=== PATIENT | male | born 1945 | race African-American/Black ===

== ENCOUNTER 2016-09-12 13:56 | Inpatient (IN) | payer OTHER, MEDICARE ==
[~2016-09-12] VITALS: Ht 162.6 cm; Wt 62.7 kg
[~2016-09-12 13:56] MED LIST: AMOX500T PO; BENZ100 PO; FLUT1SPR9 EACH NARE; OMEP20TA39 PO; PRED20 PO
[2016-09-17] VITALS (9 sets, daily range): BP systolic 113–184; BP diastolic 57–92; PULSE 80–109; RESP 16–21; TEMP 97.1–98.3; O2SAT 96–97
[2016-09-17] MEDS ORDERED: INSULIN HUMAN REGULAR 1,000 UNITS/10 ML VIAL SQ PRN (07:00)
[2016-09-17] MEDS ORDERED: METOPROLOL TARTRATE 25 MG TAB PO PRN (07:00)
[2016-09-17] MEDS ORDERED: SODIUM CHLORID 0.9% 500 ML IV SCH (07:00)
[2016-09-17] MEDS ORDERED: ASPI1TAB69 PO (07:21)
[2016-09-17] MEDS ORDERED: AMLO5TAB2 PO (07:21)
[2016-09-17] MEDS ORDERED: ATOR40TA16 PO (07:21)
[2016-09-17] MEDS ORDERED: OMEP40CA2 PO (07:21)
[2016-09-17] MEDS ORDERED: SERT-132 PO (07:21)
[2016-09-17] MEDS ORDERED: CILO100T PO (07:21)
[2016-09-17] MEDS ORDERED: LISI10TA3 PO (07:21)
--- NOTE | 2016-09-17 07:21 | PD.VS.PN ---
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 Chest clear this morning and heart RRR, no M. Informed consent has been obtained from Nico Lindsey. I have explained the procedure in detail and discussed the risks, benefits, and potential complications. All questions have been answered. Patient contact information: coming later today Yo Fisher MD Sep 17, 2016 07:21
--- NOTE | 2016-09-17 07:23 | RADRPT ---
EXAM DATE/TIME: 09/17/2016 07:03 [place] COMPARISON: No previous studies available for comparison. INDICATIONS : Evaluate for communicable diseases. Pre op vascular surgery. MEDICAL HISTORY : None. SURGICAL HISTORY : None. ENCOUNTER: Initial ACUITY: 1 day PAIN SCORE: 0/10 LOCATION: Bilateral chest FINDINGS: A single view of the chest demonstrates the lungs to be symmetrically aerated without evidence of mas s, infiltrate or effusion. The cardiomediastinal contours are unremarkable. Osseous structures are intact. CONCLUSION: No acute disease. August Ugalde MD on September 17, 2016 at 7:21 Board Certified Radiologist. This report was verified electronically.
--- NOTE | 2016-09-17 08:06 | EKG ---
Date Performed: 09/17/2016 Time Performed: 07:18:31 PTAGE: 71 years EKG: Sinus rhythm WITH FIRST DEGREE AV BLOCK NONSPECIFIC T-WAVE ABNORMALITY ABNORMAL ECG NO PREVIOUS TRACING DOCTOR: Brody Mao Interpretating Date/Time 09/17/2016 08:03:53
[2016-09-17] MEDS ORDERED: HEPARIN SODIUM - SQ 10,000 UNITS/ML VIAL ONE (08:36)
[2016-09-17] MEDS ORDERED: BUPIVACAINE/EPINEPHRINE 0.25% PF 30 ML VIAL ONE (08:36)
[2016-09-17] MEDS ORDERED: FAMOTIDINE 20 MG/2 ML VIAL ONE (08:45)
[2016-09-17] MEDS ORDERED: MIDAZOLAM HCL 2 MG/2 ML VIAL ONE (08:45)
[2016-09-17] MEDS ORDERED: DEXAMETHASONE SOD PHOS 4 MG/ML VIAL ONE (08:46)
[2016-09-17] MEDS ORDERED: ACETAMINOPHEN 1000 MG/100 ML VIAL IV ONE (08:53)
[2016-09-17] MEDS ORDERED: ceFAZolin INJ 1,000 MG VIAL IV ONE (09:37)
[2016-09-17] MEDS ORDERED: ceFAZolin INJ 1,000 MG VIAL ONE (09:58)
[2016-09-17] MEDS ORDERED: PROTAMINE SULFATE 50 MG/5 ML VIAL ONE (09:58)
[2016-09-17] MEDS ORDERED: HEPARIN SODIUM - IV 10,000 UNITS/10 ML VIAL ONE (09:58)
[2016-09-17] MEDS ORDERED: PROPOFOL 200 MG/20 ML AMP IV ONE (12:00)
[2016-09-17] MEDS ORDERED: NEOSTIGMINE 3 MG/3 ML SYR IV ONE (12:00)
[2016-09-17] MEDS ORDERED: SODIUM CHLORID 0.9% 500 ML BAG IV ONE (12:00)
[2016-09-17] MEDS ORDERED: ePHEDrine/NS 25 MG/5 ML SYR IV ONE (12:00)
[2016-09-17] MEDS ORDERED: PARENTERAL ELECTROLYTES PH 7.4 1000 ML BAG IV ONE (12:00)
[2016-09-17] MEDS ORDERED: PHENYLEPHRINE HCL 10 MG/ML VIAL IV ONE (12:00)
[2016-09-17] MEDS ORDERED: IOHEXOL 300 MG/ML 100 ML BTL (for Rad CT) IV ONE (12:00)
[2016-09-17] MEDS ORDERED: ONDANSETRON HCL 4 MG/2 ML VIAL IV PUSH ONE (12:00)
[2016-09-17] MEDS ORDERED: THROMBIN (TOPICAL) 5,000 UNIT VIAL ONE ×2 (12:23→12:26)
[2016-09-17] MEDS ORDERED: GELFOAM SIZE 100 ONE (12:23)
[2016-09-17] MEDS ORDERED: DO NOT ADM ANY ANTICOAGULANT DRUGS XX PRN (13:24)
--- NOTE | 2016-09-17 13:39 | HHI.PR ---
Immediate Post Op Note Procedure Date: Sep 17, 2016 Pre Op Diagnosis: L LE rest pain, PAD Post Op Diagnosis: L LE rest pain, PAD Surgeon: Yo Fisher Training And Development Professional(s): none Procedure: R to L fem-fem bypass with 8mm PTFE L fem-PT with 6mm PTFE re-do bypass Findings: very small tibial vessel Palpable L profunda after bypass Additional Information: none Complications: none apparent Specimen(s) removed: none Estimated blood loss: 450 mL Anesthesia: General Drains: None Fluids: 2600 mL X'oid IVF (500 mL UOP) Patient to: PACU Patient Condition: Good Implant/Devices: SEE IMPLANT LOG (if applicable) Date/Time of Procedure: SEE SURGICAL CARE RECORD Yo Fisher MD Sep 17, 2016 13:39
[2016-09-17] MEDS ORDERED: fentaNYL CITRATE 250 MCG/5 ML AMP ONE (13:43)
[2016-09-17] MEDS ORDERED: oxyCODONE/ACETAMINOPHEN 5 MG/325 MG TAB PO PRN (14:00)
[2016-09-17] MEDS ORDERED: Post-op Orders (for Pharmacy) MISC OTHER ONE (14:00)
[2016-09-17] MEDS ORDERED: MORPHINE SULFATE 4 MG/ML INJ IV PUSH PRN (14:00)
[2016-09-17] MEDS ORDERED: GLUCAGON 1 MG/ML VIAL OTHER PRN (14:00)
[2016-09-17] MEDS ORDERED: oxyCODONE/ACETAMINOPHEN 10 MG/325 MG TAB PO PRN (14:00)
[2016-09-17] MEDS ORDERED: DEXTROSE 50% IN WATER 50 ML VIAL(D50) IV PUSH PRN (14:00)
[2016-09-17] MEDS ORDERED: *morphine SULFATE 8 MG/ML PERIprocedure ONLY ONE (14:04)
[2016-09-17] MEDS ORDERED: METOPROLOL TARTRATE 5 MG/5 ML VIAL IV PUSH PRN (14:30)
[2016-09-17] MEDS ORDERED: amLODIPine BESYLATE 5 MG TAB PO ONE (15:30)
[2016-09-17] MEDS: SODIUM CHLOR 0.9% 1000 ML INJ 1,000 ML IV SCH ×2 (17:15→23:53)
[2016-09-17] MEDS: INSULIN NovoLIN REGULAR SUPPLEMENTAL SCALE SQ SCH (18:00)
[2016-09-17] MEDS: PANTOPRAZOLE SOD 40 MG DELAYED RELEASE TAB PO SCH (21:54)
[2016-09-17] MEDS: DOCUSATE CALCIUM 240 MG CAP PO SCH (21:54)
[2016-09-17] MEDS: ATORVASTATIN 40 MG TAB PO SCH (21:54)
[2016-09-18] VITALS (29 sets, daily range): BP systolic 100–113; BP diastolic 52–72; PULSE 90–142; RESP 18–22; TEMP 98–100.4; O2SAT 92–96
[2016-09-18] MEDS: INSULIN NovoLIN REGULAR SUPPLEMENTAL SCALE SQ SCH ×4 (06:00→17:56)
[2016-09-18] MEDS: LACTATED RINGER'S 1000 ML IV SCH (07:00)
[2016-09-18 07:03] LABS: BICARBONATE 25.3 MEQ/L (21.0-32.0); POTASSIUM 3.9 MEQ/L (3.5-5.1)
[2016-09-18] MEDS: ASPIRIN EC 81 MG TABEC PO SCH (09:00)
[2016-09-18] MEDS: SERTRALINE HCL 50 MG TAB PO SCH (09:13)
[2016-09-18] MEDS: LISINOPRIL 10 MG TAB PO SCH (09:13)
[2016-09-18] MEDS: SODIUM CHLOR 0.9% 1000 ML INJ 1,000 ML IV SCH (09:42)
--- NOTE | 2016-09-18 09:42 | PD.VS.PN ---
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 with a hx of L LE critical limb ischemia Today pt is on st resting comfortably with a c/o slight discomfort to surgical sites Objective Vitals/I&O Date Time Temp Pulse Resp B/P Pulse Ox O2 Delivery O2 Flow Rate FiO2 09/18/16 06:00 90 09/18/16 05:00 92 09/18/16 04:00 94 09/18/16 03:00 98.0 101 18 100/52 96 09/18/16 03:00 102 09/18/16 02:00 103 09/18/16 01:00 96 09/18/16 00:00 96 09/17/16 23:00 90 09/17/16 23:00 98.3 100 16 127/86 96 09/17/16 23:00 Nasal Cannula 2.00 09/17/16 22:00 103 09/17/16 21:00 97 09/17/16 20:00 91 09/17/16 19:00 97.1 104 21 113/57 96 09/17/16 19:00 90 09/17/16 18:05 92 09/17/16 17:02 89 09/17/16 17:01 97.9 109 16 121/79 97 09/17/16 15:30 97.5 94 12 123/77 97 Nasal Cannula 2 09/17/16 15:15 95 12 149/80 97 Nasal Cannula 2 09/17/16 15:00 97 12 117/70 96 Nasal Cannula 2 09/17/16 14:45 94 12 142/78 98 Nasal Cannula 2 09/17/16 14:30 92 12 141/77 98 Nasal Cannula 2 09/17/16 14:15 90 12 116/70 97 Nasal Cannula 2 09/17/16 14:00 87 15 137/77 97 Nasal Cannula 2 09/17/16 13:45 88 15 132/62 98 Blow By 4 Nasal Cannula 09/17/16 13:30 101 14 135/77 98 Blow By 4 Nasal Cannula 09/17/16 13:28 97.5 97 14 135/74 98 Blow By 4 Nasal Cannula Exam: GENERAL: Pt in bed smiling alert and oriented in nad SKIN: Warm and dry. NECK: Supple, trachea midline. No JVD or lymphadenopathy. CARDIOVASCULAR: Regular rate and rhythm RESPIRATORY: No accessory muscle use. GASTROINTESTINAL: Abdomen soft, non-tender, nondistended. Pt c/o slight discomfort to surgical sites, wound vacs intact MUSCULOSKELETAL: No cyanosis, or edema. Bilat LE warm with NO erythema or tenderness, motor intact and symmetric. Incisions: wound vacs intact Laboratory Laboratory Tests Test 09/18/16 05:36 Sodium Level 138 Potassium Level 3.9 Chloride Level 104 Carbon Dioxide Level 25.3 Anion Gap 9 Blood Urea Nitrogen 13 Creatinine 0.97 Estimat Glomerular Filtration 92 Rate Random Glucose 98 Calcium Level 7.9 Assessment and Plan Plan Remove Valdovinos cath today Stop IV fluids Start home medications PT OOB today Vero Kimble Sep 18, 2016 09:42
[2016-09-18] MEDS ORDERED: ASPIRIN EC 81 MG TABEC PO SCH (09:45)
[2016-09-18] MEDS: amLODIPine BESYLATE 5 MG TAB PO SCH (09:45)
[2016-09-18] MEDS: ENOXAPARIN SODIUM 40 MG/0.4 ML SYRINGE SQ SCH (12:00)
[2016-09-18] MEDS: DOCUSATE CALCIUM 240 MG CAP PO SCH ×2 (21:00→21:15)
[2016-09-18] MEDS: ATORVASTATIN 40 MG TAB PO SCH ×2 (21:00→21:15)
[2016-09-18] MEDS: PANTOPRAZOLE SOD 40 MG DELAYED RELEASE TAB PO SCH ×2 (21:00→21:15)
[2016-09-18] MEDS: ACETAMINOPHEN 325 MG TAB PO PRN (23:39)
[2016-09-19] VITALS (27 sets, daily range): BP systolic 91–140; BP diastolic 54–75; PULSE 98–133; RESP 14–25; TEMP 98.1–99.1; O2SAT 94–96
[2016-09-19] MEDS: INSULIN NovoLIN REGULAR SUPPLEMENTAL SCALE SQ SCH ×4 (06:00→18:00)
[2016-09-19] MEDS ORDERED: ONDANSETRON HCL 4 MG/2 ML VIAL ONE (06:38)
[2016-09-19] MEDS: LACTATED RINGER'S 1000 ML IV SCH (07:00)
[2016-09-19] MEDS: ACETAMINOPHEN 325 MG TAB PO PRN ×3 (08:09→23:30)
[2016-09-19] MEDS: CILOSTAZOL 100 MG TAB PO SCH (09:18)
[2016-09-19] MEDS: LISINOPRIL 10 MG TAB PO SCH (09:18)
[2016-09-19] MEDS: amLODIPine BESYLATE 5 MG TAB PO SCH (09:19)
[2016-09-19] MEDS: SERTRALINE HCL 50 MG TAB PO SCH (09:19)
[2016-09-19] MEDS: ASPIRIN EC 81 MG TABEC PO SCH (09:19)
[2016-09-19] MEDS: ENOXAPARIN SODIUM 40 MG/0.4 ML SYRINGE SQ SCH (12:00)
--- NOTE | 2016-09-19 14:43 | PD.VS.PN ---
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 patient with a hx of L LE critical limb ischemia Pt c/o left leg discomfort stated has improved since admission and fem/fem bypass (Vero Kimble) Objective Vitals/I&O Date Time Temp Pulse Resp B/P Pulse Ox O2 Delivery O2 Flow Rate FiO2 09/19/16 09:19 20 09/19/16 07:00 98.7 114 25 122/59 96 09/19/16 07:00 107 09/19/16 06:01 103 09/19/16 05:00 102 09/19/16 04:01 98 09/19/16 03:45 98.1 106 22 140/75 94 09/19/16 03:00 102 09/19/16 02:01 100 09/19/16 01:00 108 09/19/16 00:01 109 09/18/16 23:45 98.7 108 22 113/56 94 09/18/16 23:00 115 09/18/16 22:00 107 09/18/16 21:00 110 09/18/16 20:45 98.4 127 22 104/72 93 09/18/16 20:00 110 09/18/16 19:00 105 09/18/16 18:00 94 09/18/16 17:00 113 09/18/16 16:43 98.5 128 20 111/62 96 09/18/16 16:00 112 09/18/16 15:00 117 Physical Exam GENERAL: Pt laying in bed alert in nad, GCS 15 SKIN: Warm and dry. NECK: Supple, trachea midline. No JVD or lymphadenopathy. CARDIOVASCULAR: Regular rate and rhythm . RESPIRATORY: Breath sounds equal bilaterally. No accessory muscle use. GASTROINTESTINAL: Abdomen soft, non-tender, nondistended. 2 provena wound vacs located in groin regions intact MUSCULOSKELETAL: No cyanosis, or edema. RLE PT heard with triphasic signal via doppler, BLE warm with motor intact (Vero Kimble) Assessment and Plan Plan OOB Will continue to monitor Vero PONCE- [facility] [phone] (Vero Kimble) Plan Patient with fem-fem bypass for rest pain left lower extremity. This has improved. Foot is still cool but less pain. vac dressings intact. Continued pain management and discharge planning. Marquise Renteria DO, FACS Supervisor [facility] (Marquise Renteria DO) Vero Kimble Sep 19, 2016 14:43 Marquise Renteria DO Sep 19, 2016 16:40
[2016-09-19] MEDS: PANTOPRAZOLE SOD 40 MG DELAYED RELEASE TAB PO SCH (21:00)
[2016-09-19] MEDS: ATORVASTATIN 40 MG TAB PO SCH (21:00)
[2016-09-19] MEDS: DOCUSATE CALCIUM 240 MG CAP PO SCH (21:00)
[2016-09-20] VITALS (28 sets, daily range): BP systolic 99–116; BP diastolic 52–66; PULSE 90–155; RESP 16–20; TEMP 97.9–99.6; O2SAT 94–97
[2016-09-20] MEDS: INSULIN NovoLIN REGULAR SUPPLEMENTAL SCALE SQ SCH ×2 (05:13)
[2016-09-20] MEDS: amLODIPine BESYLATE 5 MG TAB PO SCH (08:51)
[2016-09-20] MEDS: SERTRALINE HCL 50 MG TAB PO SCH (08:52)
[2016-09-20] MEDS: ASPIRIN EC 81 MG TABEC PO SCH (08:52)
[2016-09-20] MEDS: ACETAMINOPHEN 325 MG TAB PO PRN (09:04)
--- NOTE | 2016-09-20 09:41 | PD.VS.PN ---
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 patient with a hx of L LE critical limb ischemia Pt c/o left leg discomfort stated has improved since admission and fem/fem bypass Not taking narcotics Objective Vitals/I&O Date Time Temp Pulse Resp B/P Pulse Ox O2 Delivery O2 Flow Rate FiO2 09/20/16 06:01 100 09/20/16 05:00 98 09/20/16 04:01 95 09/20/16 03:01 98.6 103 16 116/56 94 09/20/16 03:00 100 09/20/16 02:00 104 09/20/16 01:01 105 09/20/16 00:00 108 09/19/16 23:45 98.5 110 14 108/66 96 09/19/16 23:01 133 09/19/16 22:00 110 09/19/16 21:00 108 09/19/16 20:45 99.1 111 15 96/61 96 09/19/16 20:00 111 09/19/16 19:00 129 09/19/16 18:00 110 09/19/16 17:00 114 09/19/16 16:00 121 09/19/16 15:00 118 09/19/16 15:00 98.1 120 20 103/55 94 09/19/16 14:00 116 09/19/16 13:00 109 09/19/16 12:00 121 09/19/16 11:00 113 09/19/16 11:00 98.3 114 22 91/54 94 09/19/16 10:00 108 Exam: B groin VACs in place Medial calf incision c/d/i Warm to ankle Foot motor intact Assessment and Plan Plan Patient with fem-fem bypass for rest pain left lower extremity. This has improved. Foot is still cool but less pain. vac dressings intact. Continued pain management and discharge planning. Increase beta blockade PT/OOB and ambulate today Yo Fisher MD Sep 20, 2016 09:41
[2016-09-20] MEDS: LISINOPRIL 10 MG TAB PO SCH (11:31)
[2016-09-20] MEDS: CILOSTAZOL 100 MG TAB PO SCH (11:31)
[2016-09-20] MEDS: ENOXAPARIN SODIUM 40 MG/0.4 ML SYRINGE SQ SCH (11:32)
[2016-09-20] MEDS ORDERED: SODIUM CHLOR 0.9% 1000 ML INJ 1,000 ML IV ONE (18:00)
[2016-09-20 18:33] LABS: BICARBONATE 25.6 MEQ/L (21.0-32.0); POTASSIUM 3.4 MEQ/L (3.5-5.1)
[2016-09-20] MEDS: DOCUSATE CALCIUM 240 MG CAP PO SCH (21:48)
[2016-09-20] MEDS: PANTOPRAZOLE SOD 40 MG DELAYED RELEASE TAB PO SCH (21:48)
[2016-09-20] MEDS: ATORVASTATIN 40 MG TAB PO SCH (21:49)
[2016-09-20] MEDS: METOPROLOL TARTRATE 25 MG TAB PO SCH (21:49)
[2016-09-21] VITALS (26 sets, daily range): BP systolic 107–117; BP diastolic 53–66; PULSE 76–113; RESP 16–18; TEMP 97.6–99; O2SAT 94–96
[2016-09-21] MEDS: LACTATED RINGER'S 1000 ML IV SCH (04:47)
[2016-09-21] MEDS: ACETAMINOPHEN 325 MG TAB PO PRN (05:53)
[2016-09-21] MEDS: CILOSTAZOL 100 MG TAB PO SCH (10:07)
[2016-09-21] MEDS: SERTRALINE HCL 50 MG TAB PO SCH (10:07)
[2016-09-21] MEDS: METOPROLOL TARTRATE 25 MG TAB PO SCH ×2 (10:07→21:02)
[2016-09-21] MEDS: ASPIRIN EC 81 MG TABEC PO SCH (10:07)
[2016-09-21] MEDS: LISINOPRIL 10 MG TAB PO SCH (10:07)
[2016-09-21] MEDS: amLODIPine BESYLATE 5 MG TAB PO SCH (10:07)
[2016-09-21] MEDS ORDERED: POTASSIUM CHLORIDE 10 MEQ CONTROLLED RELEASE TAB PO ONE (11:45)
--- NOTE | 2016-09-21 13:16 | EKG ---
Date Performed: 09/20/2016 Time Performed: 17:48:52 PTAGE: 71 years EKG: Sinus tachycardia with PAC(s). Normal ECG except for rate Compared to prior tracing no sign ificant change PREVIOUS TRACING : 09/17/2016 07.18 DOCTOR: Fernando Avila Interpretating Date/Time 09/21/2016 13:13:27
--- NOTE | 2016-09-21 13:25 | PD.VS.PN ---
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 patient with a hx of L LE critical limb ischemia Pt c/o left leg discomfort stated has improved since admission and fem/fem bypass Ambulated to bathroom and pain in foot seems to be controlled with tylenol Did have PACs yesterday; K low and repleted Objective Vitals/I&O Date Time Temp Pulse Resp B/P Pulse Ox O2 Delivery O2 Flow Rate FiO2 09/21/16 06:00 105 09/21/16 05:00 102 09/21/16 04:00 100 09/21/16 03:00 100 09/21/16 03:00 98.2 95 18 117/64 95 09/21/16 02:00 99 09/21/16 01:00 105 09/21/16 00:00 94 09/20/16 23:00 93 09/20/16 23:00 99.6 96 18 104/65 95 09/20/16 22:00 105 09/20/16 21:00 110 09/20/16 20:00 109 09/20/16 19:00 105 09/20/16 19:00 98.5 118 20 115/62 97 09/20/16 18:00 109 09/20/16 17:30 155 09/20/16 17:00 118 09/20/16 16:00 113 09/20/16 15:50 97.9 116 18 99/54 95 09/20/16 15:50 120 09/20/16 15:50 116 09/20/16 15:00 120 09/20/16 14:00 104 09/21/16 09/21/16 09/21/16 07:00 15:00 23:00 Intake Total 240 ml Output Total 400 ml Balance -160 ml Exam: Groin incisions ok Palpable femoral pulses L leg wound ok Foot motor intact Laboratory Laboratory Tests Test 09/20/16 18:02 Sodium Level 141 Potassium Level 3.4 Chloride Level 107 Carbon Dioxide Level 25.6 Anion Gap 8 Blood Urea Nitrogen 19 Creatinine 0.97 Estimat Glomerular Filtration 92 Rate Random Glucose 124 Calcium Level 8.3 Assessment and Plan Plan Patient with fem-fem bypass for rest pain left lower extremity. This has improved. Foot is still cool but less pain. Anticipate d/c tomorrow (POD#5) Discharge Planning Saturday 09/23 Yo Fisher MD Sep 21, 2016 13:25
[2016-09-21] MEDS: ENOXAPARIN SODIUM 40 MG/0.4 ML SYRINGE SQ SCH (13:45)
[2016-09-21] MEDS: ATORVASTATIN 40 MG TAB PO SCH (21:02)
[2016-09-21] MEDS: DOCUSATE CALCIUM 240 MG CAP PO SCH (21:02)
[2016-09-21] MEDS: PANTOPRAZOLE SOD 40 MG DELAYED RELEASE TAB PO SCH (21:02)
[2016-09-22] VITALS (14 sets, daily range): BP systolic 108–140; BP diastolic 51–71; PULSE 86–111; RESP 16–18; TEMP 97.6–99; O2SAT 96–98
[2016-09-22 08:36] LABS: POTASSIUM 3.9 MEQ/L (3.5-5.1)
[2016-09-22] MEDS ORDERED: METO25TA3 PO (08:57)
--- NOTE | 2016-09-22 09:06 | PD.VS.DC ---
Discharge Summary Admission Date: Sep 17, 2016 at 06:09 Discharge Date: Sep 22, 2016 Admission Diagnosis: (1) PAD Discharge Diagnosis: (1) PAD Diagnosis: Principal Status: Chronic Brief History from admission Pt is a 71/M post-op Right to Left fem-fem bypass Procedure(s): R to L fem-fem bypass Significant Findings Laboratory Tests Test 09/20/16 09/22/16 18:02 07:40 Potassium Level 3.4 MEQ/L (3.5-5.1) Blood Urea Nitrogen 19 MG/DL (7-18) Random Glucose 124 MG/DL (74-106) Calcium Level 8.3 MG/DL (8.5-10.1) Chloride Level 108 MEQ/L (98-107) Hospital Course: GENERAL: Pt is a legally blind patient laying in bed A&OX3, GCS 15 SKIN: Warm and dry. Bilat groin incisions and incision to LLE medical calf region intact with no swelling, redness or drainage NECK: Supple, trachea midline. No JVD or lymphadenopathy. CARDIOVASCULAR: Regular rate and rhythm without murmurs, gallops, or rubs. NSR on CM RESPIRATORY: Breath sounds equal bilaterally. No accessory muscle use. GASTROINTESTINAL: Abdomen soft, non-tender, nondistended. MUSCULOSKELETAL: No cyanosis, or edema. Bilat LE warm with bilat palpable DP pulses. Discharge Condition: Good Discharge Disposition: Discharge Home Discharge Instructions: Pt is to follow-up in clinic on 10/10/16 at 1000 Pt is to F/U with PCP in 1 week Leave incisions open to air, clean and dry, report any signs of redness, swelling or drainage Please call the office with any questions or concerns Vero PONCE-[facility] [phone] Any questions or concerns: Call [facility] [phone] Vero Kimble Sep 22, 2016 09:06
[2016-09-22] MEDS: CILOSTAZOL 100 MG TAB PO SCH (10:41)
[2016-09-22] MEDS: LISINOPRIL 10 MG TAB PO SCH (10:41)
[2016-09-22] MEDS: METOPROLOL TARTRATE 25 MG TAB PO SCH (10:41)
[2016-09-22] MEDS: ENOXAPARIN SODIUM 40 MG/0.4 ML SYRINGE SQ SCH (12:39)
[2016-09-22] MEDS: SERTRALINE HCL 50 MG TAB PO SCH (12:40)
[2016-09-22] MEDS: amLODIPine BESYLATE 5 MG TAB PO SCH (12:40)
[2016-09-22] MEDS: ASPIRIN EC 81 MG TABEC PO SCH (12:40)
[2016-09-22] MEDS: ACETAMINOPHEN 325 MG TAB PO PRN (13:17)
--- NOTE | 2016-09-23 15:10 | MP ---
cc: BLANCA FISHER MD DATE OF SURGERY: 09/17/2016 PREOPERATIVE DIAGNOSIS Left lower extremity rest pain. POSTOPERATIVE DIAGNOSIS Left lower extremity rest pain. PROCEDURE 1. Right to left femoral-femoral bypass with 8 mm PTFE. 2. Left femoral to posterior tibial artery bypass with 6 mm PTFE. 3. Redo bypass. SALES SUPPORT SPECIALIST SURGEON Blanca Fisher ANESTHESIA General. INDICATIONS Mr. Lindsey is a 71-year-old gentleman with left lower extremity rest pain, previous femoral-popliteal bypass x2. 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 He is taking to the operating room for combined inflow and outflow procedures. DESCRIPTION OF PROCEDURE Informed consent was obtained from the patient. He was taken to the operating room and placed supine on the operating table. An appropriate timeout was taken to ensure the patient's identity, operative site and planned procedure. Two grams of Ancef were initiated prior to skin incision and will be discontinued after the single preoperative dose. Everyone in the room agreed with the timeout and we proceeded. He was prepped from his nipples to his toes. A vertical incision was made in the patient's right groin and carried down to subcutaneous tissue with electrocautery. The right common femoral artery was identified and dissected free for several centimeters. There was a nice normal caliber pulse in the common femoral artery and it was encircled with a vessel loop. An incision was made in the patient's left groin and carried down to the subcutaneous tissue with electrocautery. Dense scar tissue was encountered as well as some enlarged lymph nodes. The previous failed bypass was identified and dissected free up to the common femoral artery, and the distal external iliac artery was identified and encircled with a vessel loop. We then dissect out the distal common femoral artery as well. Both inguinal ligaments were incised with the Bovie and a tunnel was created between these two in a subfascial location through which the 8 mm PTFE was passed, taking precaution not to twist it. A separate incision was made in the patient's below knee medial calf. This was carried down to the subcutaneous tissue with electrocautery. The muscles were divided posteriorly. The below knee popliteal artery was identified and although on preoperative CT scan it appeared to be adequate, intraoperatively it appeared to be severely diseased. We dissected down to the posterior tibial artery which was dissected free and noted to be quite diminutive but it was soft. A tunnel was then created between the groin and the calf and a 6 mm ring PTFE was passed into this tunnel taking precaution not to twist it. The patient was systemically heparinized throughout the remainder of the case. The ACT kept greater than 250. Proximal and distal control of the right common femoral artery was obtained with profunda clamps and a longitudinal arteriotomy was made with an 11 blade and extended with Ronn scissors. The 8 mm PTFE was cut, spatulated and sewn end-to-side with a running 5-0 Saint Joseph-Sundeep suture. At completion the anastomosis was noted to be hemostatic. Juan Carlos Softjaw was placed on the graft. Proximal control of the left external iliac artery was obtained with profunda clamps and control of the common femoral artery distally was obtained with a profunda clamp and a longitudinal arteriotomy was made starting from the graft extending up to the proximal common femoral artery. A long arteriotomy was made and the 8 mm PTFE was cut to an appropriate length, spatulated and sewn end-to-side with running 5-0 Saint Joseph-Sundeep suture. At the completion the anastomosis was noted to be hemostatic with a nice output signal in the profunda. The grafts were re-occluded and a longitudinal graftotomy was made with an 11 blade and extended with Ronn scissors. A 6 mm graft was then spatulated and sewn end-to-side with running 5-0 Saint Joseph-Sundeep suture. When the clamps were released there was a nice pulse in the graft. A Juan Carlos soft jawed clamp was placed in the proximal graft. The distal end was then sewn onto the posterior tibial artery by occluding the posterior tibial artery proximally and distally with profunda clamps. A longitudinal arteriotomy was made with an 11 blade and extended with [place] scissors. The graft was spatulated and sewn end-to-side with running 6-0 Saint Joseph-Sundeep suture. The patient was flushed and noted hemostatic. There was a nice pulse in the graft, excellent pulse in the profunda. The wounds were irrigated and made hemostatic. The heparin was reversed with 50 mg of protamine and all the wounds were closed with 2-0 Polysorb, 3-0 Polysorb and 4-0 Monocryl. Sponge and needle counts were correct at the end of the case. I was present and scrubbed for the entire procedure. MD SULTANA Sawant /2:10 PM /2:56 PM JULIETTE
== END 2016-09-22 13:41 | disposition home or self-care (01) | DRG 254 ==
LOC: HSDI 09-17 06:09 → HCPC 09-17 16:20
PROVIDERS: ADMIT Surgery; ATTEND Surgery
PROC: 041K0JJ Bypass Right Femoral Artery to Left Femoral Artery with Synthetic Substitute, Open Approach (ICD-10-PCS; principal; 2016-09-17 09:00)
PROC: 041L0JN Bypass Left Femoral Artery to Posterior Tibial Artery with Synthetic Substitute, Open Approach (ICD-10-PCS; 2016-09-17 09:00)
DX: I73.9 Peripheral vascular disease, unspecified (principal); I10 Essential (primary) hypertension; H54.8 Legal blindness, as defined in USA; K21.9 Gastro-esophageal reflux disease without esophagitis; E78.5 Hyperlipidemia, unspecified; Z87.891 Personal history of nicotine dependence
CPT/HCPCS: 71010; 75710; 80048; 82948; 93005; 94150; C1768; J0131; J0690; J1100; J1644; J1650; J2250; J2270; J2370; J2405; J2710; J2720; J3010; J7030; J7040; Q9967

== ENCOUNTER 2016-10-03 13:46 | Inpatient (IN) | payer OTHER, MEDICARE ==
[2016-10-03] VITALS (9 sets, daily range): BP systolic 98–123; BP diastolic 62–74; PULSE 90–118; RESP 16–18; TEMP 98–98.8; O2SAT 95–97
[~2016-10-03 13:46] MED LIST changes: +AMLO5TAB2 PO; -AMOX500T PO; +ASPI1TAB69 PO; +ATOR40TA16 PO; -BENZ100 PO; +CILO100T PO; -FLUT1SPR9 EACH NARE; +LISI10TA3 PO; +METO25TA3 PO; -OMEP20TA39 PO; +OMEP40CA2 PO; -PRED20 PO; +SERT-132 PO
[2016-10-03 16:12] LABS: AUTOMATED NEUTROPHIL # 6.9 TH/MM3 (1.8-7.7); BASOPHIL # 0.1 TH/MM3 (0-0.2); BASOPHIL % 0.9 % (0.0-2.0); EOSINOPHIL # 0.1 TH/MM3 (0-0.4); EOSINOPHIL % 1.2 % (0.0-4.0); HEMATOCRIT 31.2 % (39.0-51.0); HEMO FLAGS DIFF FINAL; LYMPH % 20.2 % (9.0-44.0); LYMPHOCYTE # 2.1 TH/MM3 (1.0-4.8); MEAN CELL VOLUME 92.9 FL (80.0-100.0); MEAN CORPUSCULAR HEMOGLOBIN 30.4 PG (27.0-34.0); MEAN CORPUSCULAR HGB CONC 32.8 % (32.0-36.0); MONO % 11.2 % (0.0-8.0); NEUT % 66.5 % (16.0-70.0); PLATELET COUNT 427 TH/MM3 (150-450); RED BLOOD COUNT 3.36 MIL/MM3 (4.50-5.90); RED CELL DISTRIBUTION WIDTH 14.2 % (11.6-17.2); WHITE BLOOD COUNT 10.3 TH/MM3 (4.0-11.0)
[2016-10-03 16:30] LABS: BICARBONATE 25.7 MEQ/L (21.0-32.0); POTASSIUM 3.4 MEQ/L (3.5-5.1)
--- NOTE | 2016-10-03 17:04 | HHI.HP ---
History of Present Illness Chief Complaint: L LE pain History of Present Illness 71 yo male with PAD and a recent R to L fem-fem bypass and a re-do L fem-distal bypass. Since discharge he has had worsening pain of his foot and I think the distal bypass is occluded. He is not able to walk on the foot. Past/Family/Social History Past Medical History blindness cough dyslipidemia GERD PAD HTN Past Surgical History L LE bypass x 2 R to L fem-fem bypass Social History former smoker Home Medications Active Scripts Metoprolol Tartrate 25 Mg Tab25 Mg PO Q12HR #60 TAB Ref 6 Prov:Vero Kimble PLANNING FEEDER 09/22/16 Reported Medications Sertraline 50 Mg Tab50 Mg PO DAILY #30 TAB Ref 0 09/17/16 Omeprazole 40 Mg Cap40 Mg PO DAILY #30 CAP Ref 0 09/17/16 Lisinopril 10 Mg Tab10 Mg PO DAILY #30 TAB Ref 0 09/17/16 Cilostazol 100 Mg [id number] Mg PO DAILY Ref 0 09/17/16 Atorvastatin 40 Mg Tab40 Mg PO DAILY #30 TAB Ref 0 09/17/16 Aspirin 81 Mg [id number] Mg PO DAILY 09/17/16 Amlodipine 5 Mg Tab5 Mg PO DAILY #30 TAB Ref 0 09/17/16 Coded Allergies: No Known Allergies (Unverified , 09/16/16) Review of Systems Constitutional: DENIES: Diaphoretic episodes, Fatigue, Fever, Weight gain, Chills Eyes: COMPLAINS OF: Vision loss Musculoskeletal: COMPLAINS OF: Joint pain Integumentary: COMPLAINS OF: Abnormal pigmentation Physical Exam Vitals/I&O Date Time Temp Pulse Resp B/P Pulse Ox O2 Delivery O2 Flow Rate FiO2 10/03/16 16:00 118 10/03/16 15:30 98.8 105 16 98/62 95 10/03/16 15:30 112 Neuro: alert, oriented HEENT: NC/AT; blind Neck: no JVD Heart: reg rate Lungs: clear Abdomen: NT Vascular: B groin incisions healed. L BK incision with mild necrosis No palpable pulses (CONRAD 0.6/0.2) Extremities: cyanosis L foot Laboratory Tests Test 10/03/16 15:01 White Blood Count 10.3 Red Blood Count 3.36 Hemoglobin 10.2 Hematocrit 31.2 Mean Corpuscular Volume 92.9 Mean Corpuscular Hemoglobin 30.4 Mean Corpuscular Hemoglobin 32.8 Concent Red Cell Distribution Width 14.2 Platelet Count 427 Mean Platelet Volume 8.1 Neutrophils (%) (Auto) 66.5 Lymphocytes (%) (Auto) 20.2 Monocytes (%) (Auto) 11.2 Eosinophils (%) (Auto) 1.2 Basophils (%) (Auto) 0.9 Neutrophils # (Auto) 6.9 Lymphocytes # (Auto) 2.1 Monocytes # (Auto) 1.2 Eosinophils # (Auto) 0.1 Basophils # (Auto) 0.1 CBC Comment DIFF FINAL Differential Comment Sodium Level 140 Potassium Level 3.4 Chloride Level 105 Carbon Dioxide Level 25.7 Anion Gap 9 Blood Urea Nitrogen 18 Creatinine 1.10 Estimat Glomerular Filtration 80 Rate Random Glucose 106 Calcium Level 8.9 Assessment and Plan Plan 1. Admit for IV pain medications 2. CTA A/P to toes 3. IV hep gtt - low intensity protocol 4. Anticipate angiogram on Thursday and potential attempt at revascularization Yo Fisher MD Oct 03, 2016 17:04
[2016-10-03 17:38] LABS: APTT (PATIENT) 26.8 SEC (24.3-30.1); PROTHROMBIN TIME - PATIENT 10.7 SEC (9.8-11.6)
[2016-10-03] MEDS: HEPARIN-D5W INJ 250 ML IV SCH (18:15)
[2016-10-03] MEDS: SODIUM BICARBONATE 8.4% INJ 50 MEQ in DEXTROSE 5% IN WATE 1000ML INJ 1,000 ML IV SCH ×2 (18:30)
[2016-10-03] MEDS: METOPROLOL TARTRATE 25 MG TAB PO SCH (20:45)
[2016-10-04] VITALS (24 sets, daily range): BP systolic 122–158; BP diastolic 72–86; PULSE 86–104; RESP 16–18; TEMP 98–98.5; O2SAT 96–98
[2016-10-04 01:13] LABS: APTT (PATIENT) 31.6 SEC (24.3-30.1)
[2016-10-04] MEDS ORDERED: PANTOPRAZOLE SOD 40 MG DELAYED RELEASE TAB PO SCH (09:00)
[2016-10-04] MEDS ORDERED: PNEUMOCOCCAL POLYVALENT INJ 25 MCG/0.5 ML SYR IM ONE (10:00)
[2016-10-04] MEDS: SERTRALINE HCL 50 MG TAB PO SCH (10:04)
[2016-10-04] MEDS: ATORVASTATIN 40 MG TAB PO SCH (10:04)
[2016-10-04] MEDS: amLODIPine BESYLATE 5 MG TAB PO SCH (10:04)
[2016-10-04] MEDS: CILOSTAZOL 100 MG TAB PO SCH (10:04)
[2016-10-04] MEDS: ASPIRIN 81 MG CHEW TAB PO SCH (10:04)
[2016-10-04] MEDS: METOPROLOL TARTRATE 25 MG TAB PO SCH ×2 (10:04→21:00)
[2016-10-04] MEDS: PANTOPRAZOLE SOD 40 MG DELAYED RELEASE TAB PO SCH (10:04)
[2016-10-04] MEDS: LISINOPRIL 10 MG TAB PO SCH (10:05)
[2016-10-04] MEDS: MORPHINE SULFATE 4 MG/ML INJ IV PRN ×3 (10:11→22:05)
--- NOTE | 2016-10-04 10:41 | PD.VS.PN ---
Subjective Subjective/Hospital Course PT adm with rest pain, resting this morning on hep gtt Objective Vitals/I&O Date Time Temp Pulse Resp B/P Pulse Ox O2 Delivery O2 Flow Rate FiO2 10/04/16 08:00 95 10/04/16 07:15 101 10/04/16 05:00 90 10/04/16 04:00 98.0 92 18 147/76 97 10/04/16 04:00 91 10/04/16 03:00 90 10/04/16 02:36 98.0 91 18 143/72 97 10/04/16 02:00 94 10/04/16 01:00 94 10/04/16 00:00 98.0 91 18 143/72 97 10/04/16 00:00 90 10/03/16 23:00 90 10/03/16 22:00 92 10/03/16 21:00 102 10/03/16 20:00 98.0 113 18 123/74 97 10/03/16 20:00 106 10/03/16 19:00 118 10/03/16 18:00 110 10/03/16 17:00 105 10/03/16 16:00 118 10/03/16 15:30 98.8 105 16 98/62 95 10/03/16 15:30 112 Physical Exam resting, motor intact, foot stable Laboratory Laboratory Tests Test 10/03/16 10/03/16 10/04/16 15:01 17:15 00:48 White Blood Count 10.3 Red Blood Count 3.36 Hemoglobin 10.2 Hematocrit 31.2 Mean Corpuscular Volume 92.9 Mean Corpuscular Hemoglobin 30.4 Mean Corpuscular Hemoglobin 32.8 Concent Red Cell Distribution Width 14.2 Platelet Count 427 Mean Platelet Volume 8.1 Neutrophils (%) (Auto) 66.5 Lymphocytes (%) (Auto) 20.2 Monocytes (%) (Auto) 11.2 Eosinophils (%) (Auto) 1.2 Basophils (%) (Auto) 0.9 Neutrophils # (Auto) 6.9 Lymphocytes # (Auto) 2.1 Monocytes # (Auto) 1.2 Eosinophils # (Auto) 0.1 Basophils # (Auto) 0.1 CBC Comment DIFF FINAL Differential Comment Sodium Level 140 Potassium Level 3.4 Chloride Level 105 Carbon Dioxide Level 25.7 Anion Gap 9 Blood Urea Nitrogen 18 Creatinine 1.10 Estimat Glomerular Filtration 80 Rate Random Glucose 106 Calcium Level 8.9 Prothrombin Time 10.7 Prothromb Time International 1.0 Ratio Activated Partial 26.8 31.6 Thromboplast Time Assessment and Plan Plan 1. continue IV pain medications 2. CTA A/P to toes today 3. IV hep gtt - low intensity protocol 4. Anticipate angiogram on Thursday and potential attempt at revascularization Yo Fisher MD Oct 04, 2016 10:41
[2016-10-04 11:27] LABS: APTT (PATIENT) 44.9 SEC (24.3-30.1)
[2016-10-04] MEDS ORDERED: POTASSIUM CHLORIDE 20 MEQ CONTROLLED RELEASE TAB PO ONE (12:45)
[2016-10-04] MEDS ORDERED: IOHEXOL 350 MG/ML 10 ML VIAL (for RAD DIAG) IV ONE (14:55)
[2016-10-04] MEDS: SODIUM BICARBONATE 8.4% INJ 50 MEQ in DEXTROSE 5% IN WATE 1000ML INJ 1,000 ML IV SCH ×2 (18:30)
[2016-10-04 19:46] LABS: APTT (PATIENT) 29.9 SEC (24.3-30.1)
[2016-10-05] VITALS (26 sets, daily range): BP systolic 110–146; BP diastolic 53–78; PULSE 75–118; RESP 16–18; TEMP 97.6–98.6; O2SAT 97–100
[2016-10-05 02:40] LABS: APTT (PATIENT) 29.5 SEC (24.3-30.1)
[2016-10-05 03:05] LABS: BICARBONATE 25.7 MEQ/L (21.0-32.0); POTASSIUM 4.1 MEQ/L (3.5-5.1)
[2016-10-05] MEDS: MORPHINE SULFATE 4 MG/ML INJ IV PRN (04:53)
[2016-10-05] MEDS: SODIUM BICARBONATE 8.4% INJ 50 MEQ in DEXTROSE 5% IN WATE 1000ML INJ 1,000 ML IV SCH ×2 (05:41)
--- NOTE | 2016-10-05 07:32 | RADRPT ---
EXAM DATE/TIME: 10/04/2016 14:03 [place] COMPARISON: No previous studies available for comparison. INDICATIONS : Bilateral foot pain, peripheral vascular disease; evaluate for occulsion. IV CONTRAST: 62 cc Omnipaque 350 (iohexol) IV RADIATION DOSE: 1.45 CTDIvol (mGy) MEDICAL HISTORY : Peripheral vascular disease. Hypertension. SURGICAL HISTORY : Colon resection. ENCOUNTER: Initial ACUITY: 2 days PAIN SCALE: 7/10 LOCATION: Bilateral foot. TECHNIQUE: Volumetric scanning was performed using a multi-row detector CT scanner. The data was post processed with a variety of visualization algorithms including full volume maximum intensity projection, multi -planar sliding thin slab reformation, curved planar reformation, and surface rendering techniques. Using automated exposure control and adjustment of the mA and/or kV according to patient size, radiat ion dose was kept as low as reasonably achievable to obtain optimal diagnostic quality images. FINDINGS: ABDOMINAL AORTA: The lumen is without significant narrowing or aneurysmal dilation. There is mild atherosclerotic jonn quing along the distal aorta. The proximal celiac and superior mesenteric arteries are patent and nor mal in diameter. There are solitary renal arteries bilaterally. Mild atherosclerotic plaquing is not ed. No focal or high-grade stenosis is demonstrated.. BIFURCATION: Atherosclerotic changes at the bifurcation. RIGHT PELVIS: The right common iliac, internal iliac, and external iliac vessels are patent. There is some atherosc lerotic plaquing along the right common iliac artery. No high-grade stenosis is seen. LEFT PELVIS: The [place] vessels of the left common iliac, external iliac and internal iliac or occluded. There is a femoral-femoral graft at the groin which is patent RIGHT THIGH: Flow is demonstrated in the right SFA however there are multiple areas of narrowing with some calcifi ed plaquing along the SFA. No segmental occlusion is seen. However there does appear to be areas of s ome moderate to high-grade stenosis involving the right SFA. LEFT THIGH: Patient's [place] vessels are occluded. There is a left femoropopliteal graft in place which is occlud ed. RIGHT KNEE: There is flow in the right popliteal artery with some calcified plaques. There are some areas of narr owing. No segmental occlusion is seen. LEFT KNEE: There is a trace of contrast in the left popliteal artery most likely from collaterals. Calcified jonn ques are noted. RIGHT LEG: There is atherosclerotic trifurcation disease with a single vessel runoff down to the right ankle whi ch appears to be the posterior tibial artery. LEFT LEG: There is trifurcation disease. There appears to be some flow in the distal posterior tibial artery mo st likely from collaterals. CONCLUSION: 1. There is a femoral-femoral graft at the groin which is patent. 2. There is a left femoropopliteal graft which is occluded. 3. The [place] right SFA is patent with diffuse atherosclerotic plaquing and multiple areas of narrowi ng. 4. The right popliteal artery is patent without other plaquing and areas of narrowing. 5. Trifurcation disease below the right knee with a single vessel runoff to the right ankle appears t o be the posterior tibial artery 6. Trace of flow in the left popliteal artery most likely from collaterals. 7. There also appears to be some flow in the distal left posterior tibial artery most likely from col laterals. 8. Atherosclerotic changes in the distal aorta and right pelvic vessels without high-grade stenosis.. 1. Ja Ventura MD on October 05, 2016 at 7:15 Board Certified Radiologist. This report was verified electronically.
[2016-10-05] MEDS: CILOSTAZOL 100 MG TAB PO SCH ×2 (09:00→09:28)
[2016-10-05] MEDS: PANTOPRAZOLE SOD 40 MG DELAYED RELEASE TAB PO SCH ×2 (09:00→09:28)
[2016-10-05] MEDS: SERTRALINE HCL 50 MG TAB PO SCH ×2 (09:00→09:28)
[2016-10-05] MEDS: ATORVASTATIN 40 MG TAB PO SCH ×2 (09:00→09:27)
[2016-10-05] MEDS: METOPROLOL TARTRATE 25 MG TAB PO SCH ×2 (09:27→20:34)
[2016-10-05] MEDS: amLODIPine BESYLATE 5 MG TAB PO SCH (09:27)
[2016-10-05] MEDS: LISINOPRIL 10 MG TAB PO SCH (09:27)
[2016-10-05] MEDS: ASPIRIN 81 MG CHEW TAB PO SCH (09:28)
[2016-10-05 11:10] LABS: APTT (PATIENT) 37.7 SEC (24.3-30.1)
--- NOTE | 2016-10-05 12:20 | PD.VS.PN ---
Pre-operative Note Pre-operative diagnosis: L LE ischemia, failed distal bypass Planned procedure: Aortogram w/ L LE angiogram Labs: Laboratory Tests Test 10/04/16 10/05/16 10/05/16 18:49 02:09 10:05 Activated Partial 29.9 29.5 37.7 Thromboplast Time Sodium Level 141 Potassium Level 4.1 Chloride Level 107 Carbon Dioxide Level 25.7 Anion Gap 8 Blood Urea Nitrogen 9 Creatinine 0.88 Estimat Glomerular Filtration 103 Rate Random Glucose 106 Calcium Level 8.6 Blood: none needed Imaging: Last 48 hours Impressions Aorta w/Runoff CTA 10/04/16 0000 Signed Impressions: Service Date/Time: Tuesday, October 04, 2016 14:03 - CONCLUSION: 1. There is a femoral-femoral graft at the groin which is patent. 2. There is a left femoropopliteal graft which is occluded. 3. The [place] right SFA is patent with diffuse atherosclerotic plaquing and multiple areas of narrowing. 4. The right popliteal artery is patent without other plaquing and areas of narrowing. 5. Trifurcation disease below the right knee with a single vessel runoff to the right ankle appears to be the posterior tibial artery 6. Trace of flow in the left popliteal artery most likely from collaterals. 7. There also appears to be some flow in the distal left posterior tibial artery most likely from collaterals. 8. Atherosclerotic changes in the distal aorta and right pelvic vessels without high-grade stenosis.. 1. Ja Ventura MD Orders: NPO at [place] [facility] to start at [facility] gtt to be held in pre-op Post-operative destination: PACU Operative site marked: No Consent: I have explained the procedure in detail and discussed the risks, benefits, and potential complications. All questions have been answered. Patient contact information: NataliaYo Koch MD Oct 05, 2016 12:20
[2016-10-05] MEDS: HEPARIN-D5W INJ 250 ML IV SCH ×2 (17:33→22:19)
[2016-10-05 19:06] LABS: APTT (PATIENT) 55.9 SEC (24.3-30.1)
[2016-10-05] MEDS: D5-LR + KCL 20 MEQ INJ 1,000 ML IV SCH (22:16)
[2016-10-06] VITALS (28 sets, daily range): BP systolic 88–194; BP diastolic 53–120; PULSE 76–102; RESP 16–18; TEMP 98.1–99.1; O2SAT 96–99
[2016-10-06 02:29] LABS: HEMATOCRIT 32.2 % (39.0-51.0); MEAN CELL VOLUME 92.1 FL (80.0-100.0); MEAN CORPUSCULAR HGB CONC 31.5 % (32.0-36.0); PLATELET COUNT 384 TH/MM3 (150-450); RED BLOOD COUNT 3.49 MIL/MM3 (4.50-5.90); RED CELL DISTRIBUTION WIDTH 13.9 % (11.6-17.2); REVIEW FLAG FINAL; WHITE BLOOD COUNT 9.1 TH/MM3 (4.0-11.0)
[2016-10-06] MEDS: MORPHINE SULFATE 4 MG/ML INJ IV PRN ×2 (02:31→11:20)
[2016-10-06 02:39] LABS: APTT (PATIENT) 59.8 SEC (24.3-30.1)
[2016-10-06] MEDS ORDERED: HEPARIN SODIUM - IV 10,000 UNITS/10 ML VIAL ONE (07:39)
[2016-10-06] MEDS ORDERED: PROTAMINE SULFATE 50 MG/5 ML VIAL ONE (07:39)
[2016-10-06] MEDS ORDERED: BUPIVACAINE/EPINEPHRINE 0.25% PF 30 ML VIAL ONE (07:41)
[2016-10-06] MEDS ORDERED: LIDOCAINE HCL 1% 20 ML VIAL ONE (07:42)
[2016-10-06] MEDS ORDERED: FAMOTIDINE 20 MG/2 ML VIAL ONE (08:03)
[2016-10-06] MEDS ORDERED: ACETAMINOPHEN 1000 MG/100 ML VIAL IV ONE (08:03)
[2016-10-06] MEDS ORDERED: MIDAZOLAM HCL 2 MG/2 ML VIAL ONE (08:04)
[2016-10-06] MEDS ORDERED: MORPHINE SULFATE 4 MG/ML INJ ONE (08:05)
[2016-10-06] MEDS ORDERED: IOHEXOL 300 MG/ML 100 ML BTL (for Rad CT) OTHER ONE (08:47)
--- NOTE | 2016-10-06 09:03 | HHI.PR ---
Immediate Post Op Note Procedure Date: Oct 06, 2016 Pre Op Diagnosis: L LE rest pain, failed distal bypass Post Op Diagnosis: L LE rest pain, failed distal bypass Surgeon: Yo Fisher Roll Tender(s): none Procedure: U/S guided access to R fem-fem (inflow) L LE angiogram Findings: patent fem-fem with preserved PFA outflow occluded fem-tib PT reconstitution at distal calf Complications: none apparent Specimen(s) removed: none Estimated blood loss: 10 mL Anesthesia: MAC Drains: None Patient to: PACU Patient Condition: Good Date/Time of Procedure: SEE SURGICAL CARE RECORD Yo Fisher MD Oct 06, 2016 09:03
[2016-10-06] MEDS ORDERED: DO NOT ADM ANY ANTICOAGULANT DRUGS XX PRN (09:12)
[2016-10-06] MEDS ORDERED: PROPOFOL 200 MG/20 ML AMP IV ONE (09:20)
[2016-10-06] MEDS: LISINOPRIL 10 MG TAB PO SCH (10:17)
[2016-10-06] MEDS: PANTOPRAZOLE SOD 40 MG DELAYED RELEASE TAB PO SCH (10:18)
[2016-10-06] MEDS: METOPROLOL TARTRATE 25 MG TAB PO SCH ×2 (10:18→20:54)
[2016-10-06] MEDS: amLODIPine BESYLATE 5 MG TAB PO SCH (10:18)
[2016-10-06] MEDS: ATORVASTATIN 40 MG TAB PO SCH (10:18)
[2016-10-06] MEDS: CILOSTAZOL 100 MG TAB PO SCH (10:18)
[2016-10-06] MEDS: SERTRALINE HCL 50 MG TAB PO SCH (10:18)
[2016-10-06] MEDS: ASPIRIN 81 MG CHEW TAB PO SCH (10:18)
[2016-10-06] MEDS: D5-LR + KCL 20 MEQ INJ 1,000 ML IV SCH ×2 (11:12→20:55)
[2016-10-06] MEDS: SODIUM BICARBONATE 8.4% INJ 50 MEQ in DEXTROSE 5% IN WATE 1000ML INJ 1,000 ML IV SCH ×2 (15:16)
[2016-10-06 18:36] LABS: APTT (PATIENT) 34.3 SEC (24.3-30.1)
[2016-10-07] VITALS: BP 134/84; PULSE 82; RESP 18; TEMP 98.2; O2SAT 97
[2016-10-07 00:18] LABS: APTT (PATIENT) 64.5 SEC (24.3-30.1)
[2016-10-07] MEDS: HEPARIN-D5W INJ 250 ML IV SCH ×2 (00:39→22:56)
[2016-10-07 04:00] VITALS: BP 150/79; PULSE 90; RESP 16; TEMP 98.4; O2SAT 98
[2016-10-07 07:13] LABS: APTT (PATIENT) 92.7 SEC (24.3-30.1)
[2016-10-07 08:01] VITALS: BP 145/78; PULSE 86; PULSE 88; RESP 18; TEMP 99; O2SAT 98
[2016-10-07] MEDS: PANTOPRAZOLE SOD 40 MG DELAYED RELEASE TAB PO SCH (09:00)
[2016-10-07] MEDS: METOPROLOL TARTRATE 25 MG TAB PO SCH ×2 (09:00→20:53)
[2016-10-07] MEDS: SERTRALINE HCL 50 MG TAB PO SCH (09:00)
[2016-10-07] MEDS: ATORVASTATIN 40 MG TAB PO SCH (09:00)
[2016-10-07] MEDS: ASPIRIN 81 MG CHEW TAB PO SCH (09:00)
[2016-10-07] MEDS: amLODIPine BESYLATE 5 MG TAB PO SCH (09:00)
[2016-10-07] MEDS: LISINOPRIL 10 MG TAB PO SCH (09:00)
[2016-10-07] MEDS: CILOSTAZOL 100 MG TAB PO SCH (09:00)
[2016-10-07 11:07] LABS: APTT (PATIENT) 30.6 SEC (24.3-30.1)
[2016-10-07] MEDS: MORPHINE SULFATE 4 MG/ML INJ IV PRN (11:08)
[2016-10-07] MEDS: D5-LR + KCL 20 MEQ INJ 1,000 ML IV SCH ×2 (11:45→22:53)
[2016-10-07 12:15] VITALS: BP 160/86; PULSE 94; PULSE 98; RESP 18; TEMP 98.1; O2SAT 96
--- NOTE | 2016-10-07 12:27 | PD.VS.PN ---
Pre-operative Note Pre-operative diagnosis: PAD Planned procedure: Left LE bypass Labs: Laboratory Tests Test 10/06/16 10/06/16 10/07/16 10/07/16 18:17 23:48 06:34 10:45 Activated Partial 34.3 64.5 92.7 30.6 Thromboplast Time Blood: Pt refused any potential blood product administration per mormon beliefs Laboratory Tests Test 10/05/16 10/05/16 10/06/16 10/06/16 10:05 18:18 02:14 18:17 Activated Partial 37.7 SEC 55.9 SEC 59.8 SEC 34.3 SEC Thromboplast Time (24.3-30.1) (24.3-30.1) (24.3-30.1) (24.3-30.1) Red Blood Count 3.49 MIL/MM3 (4.50-5.90) Hemoglobin 10.1 GM/DL (13.0-17.0) Hematocrit 32.2 % (39.0-51.0) Mean Corpuscular Hemoglobin 31.5 % Concent (32.0-36.0) Test 10/06/16 10/07/16 10/07/16 23:48 06:34 10:45 Activated Partial 64.5 SEC 92.7 SEC 30.6 SEC Thromboplast Time (24.3-30.1) (24.3-30.1) (24.3-30.1) EKG: SR Imaging: Last Impressions Aorta w/Runoff CTA 10/04/16 0000 Signed Impressions: Service Date/Time: Tuesday, October 04, 2016 14:03 - CONCLUSION: 1. There is a femoral-femoral graft at the groin which is patent. 2. There is a left femoropopliteal graft which is occluded. 3. The [place] right SFA is patent with diffuse atherosclerotic plaquing and multiple areas of narrowing. 4. The right popliteal artery is patent without other plaquing and areas of narrowing. 5. Trifurcation disease below the right knee with a single vessel runoff to the right ankle appears to be the posterior tibial artery 6. Trace of flow in the left popliteal artery most likely from collaterals. 7. There also appears to be some flow in the distal left posterior tibial artery most likely from collaterals. 8. Atherosclerotic changes in the distal aorta and right pelvic vessels without high-grade stenosis.. 1. Ja Ventura MD Orders: NPO after midnight Start maintenance IV fluids at midnight Post-operative destination: CPCU or CIC Consent: Informed consent has been obtained from Nico Lindsey. I have explained the procedure in detail and discussed the risks, benefits, and potential complications. All questions have been answered. Vero Kimble Oct 07, 2016 12:27
[2016-10-07 16:39] VITALS: BP 110/59; PULSE 93; RESP 18; TEMP 98.9; O2SAT 94
[2016-10-07] MEDS: SODIUM BICARBONATE 8.4% INJ 50 MEQ in DEXTROSE 5% IN WATE 1000ML INJ 1,000 ML IV SCH ×2 (18:13)
[2016-10-07 18:59] LABS: APTT (PATIENT) 57.5 SEC (24.3-30.1)
[2016-10-07 20:00] VITALS: BP 119/58; PULSE 88; RESP 18; TEMP 98.2; O2SAT 93
[2016-10-07] MEDS: POLYSACCHARIDE IRON COMPLEX 150 MG CAP PO SCH (20:53)
[2016-10-07] MEDS: DOCUSATE SODIUM 100 MG CAP PO SCH (20:53)
[2016-10-08] VITALS (10 sets, daily range): BP systolic 113–155; BP diastolic 64–86; PULSE 75–126; RESP 16–20; TEMP 98.2–98.8; O2SAT 92–100
[2016-10-08] MEDS ORDERED: D5-1/2 NS + KCL 20 MEQ INJ 1,000 ML IV SCH (00:01)
[2016-10-08] MEDS: MORPHINE SULFATE 4 MG/ML INJ IV PRN (02:49)
[2016-10-08 03:31] LABS: APTT (PATIENT) 27.1 SEC (24.3-30.1)
[2016-10-08] MEDS ORDERED: HEPARIN SODIUM - IV 10,000 UNITS/10 ML VIAL ONE (06:51)
[2016-10-08] MEDS ORDERED: HEPARIN SODIUM - SQ 10,000 UNITS/ML VIAL ONE (06:51)
[2016-10-08] MEDS ORDERED: PROTAMINE SULFATE 50 MG/5 ML VIAL ONE (06:51)
[2016-10-08] MEDS ORDERED: BUPIVACAINE/EPINEPHRINE 0.5% PF 30 ML VIAL ONE (06:52)
[2016-10-08] MEDS: LISINOPRIL 10 MG TAB PO SCH (08:22)
[2016-10-08] MEDS: METOPROLOL TARTRATE 25 MG TAB PO SCH ×2 (08:22→21:31)
[2016-10-08] MEDS: CILOSTAZOL 100 MG TAB PO SCH (08:22)
[2016-10-08] MEDS: amLODIPine BESYLATE 5 MG TAB PO SCH (08:23)
[2016-10-08] MEDS ORDERED: fentaNYL CITRATE 250 MCG/5 ML AMP ONE (08:53)
[2016-10-08] MEDS: ASPIRIN 81 MG CHEW TAB PO SCH (08:59)
[2016-10-08] MEDS: ATORVASTATIN 40 MG TAB PO SCH (08:59)
[2016-10-08] MEDS: DOCUSATE SODIUM 100 MG CAP PO SCH ×2 (08:59→21:31)
[2016-10-08] MEDS: PANTOPRAZOLE SOD 40 MG DELAYED RELEASE TAB PO SCH (09:00)
[2016-10-08] MEDS: POLYSACCHARIDE IRON COMPLEX 150 MG CAP PO SCH ×2 (09:00→21:31)
[2016-10-08] MEDS: SERTRALINE HCL 50 MG TAB PO SCH (09:00)
[2016-10-08 09:03] LABS: APTT (PATIENT) 28.1 SEC (24.3-30.1)
[2016-10-08] MEDS ORDERED: VANCOMYCIN HCL 1000 MG VIAL ONE (09:45)
--- NOTE | 2016-10-08 10:26 | MP ---
cc: YO FISHER MD DATE OF SURGERY 10/06/2016 PREOPERATIVE DIAGNOSIS Left lower extremity rest pain, failed distal bypass. POSTOPERATIVE DIAGNOSIS Left lower extremity rest pain, failed distal bypass. PROCEDURE 1. Ultrasound guided access to right groin. 2. Left lower extremity angiogram. ATTENDING SURGEON Dr. Yo Fisher PRINTED CIRCUIT BOARD PCB DRAFTSMAN None. ANESTHESIA Local with sedation. INDICATION Mr. Lindsey is a 71-year-old gentleman with a complex revascularization history. He has failed distal bypass on his left and presented to clinic with recurrent rest pain. He is taking to the operating room for angiographic evaluation. There is no prior catheterization imaging available for my review. DESCRIPTION OF THE PROCEDURE Informed consent was obtained from the patient. He was taken to the operating room and placed supine on the operating room table. An appropriate timeout was achieved ensuring the patient's identify, operative site, and planned procedure. The administration of antibiotics was not necessary as this is a clean procedure without the planned implantation of any foreign object. Everyone in the room agreed with timeout and we proceeded. His bilateral groins were prepped and draped and the right groin was anesthetized with 1% lidocaine. Using ultrasonographic guidance the micropuncture needle was used to access the proximal aspect of the right to left fem-fem bypass. This was exchanged using Seldinger technique for a micropuncture sheath through which an angiogram was obtained. Micropuncture sheath was removed and pressure held for hemostasis. There were no complications. I was present and scrubbed and performed the entire procedure. INTERPRETATION IMAGES The patient has a patent fem-fem bypass. The [place] branches of the left groin outflow are widely patent. The SFA and popliteal artery are occluded. The previous bypasses are occluded. The profunda based collaterals give rise to a posterior tibial artery in the distal calf. Yo Fisher MD RJF/KK /9:40 AM /10:18 AM
--- NOTE | 2016-10-08 11:35 | PD.CONS ---
[facility] Service Urology Consult Requested By Reason for Consult Unable to pass Valdovinos catheter Primary Care Physician No Primary Care Physician Diagnosis: History of Present Illness This is a 71 year-old male elected to undergo bypass grafting by Dr. Fisher and request was made for Valdovinos catheter insertion. Staff in the operating room was unable to place Valdovinos catheter and it was some blood at the meatus noted. The patient was on the table and intubated size unable to take any significant past medical her past surgical history from the patient. History will be obtained from the chart. Review of Systems ROS Limitations: Intubated Past Family Social History Past Medical History GERD, hypertension, blindness, peripheral vascular disease, dyslipidemia Past Surgical History Prior lower extremity bypass grafting Allergies: Coded Allergies: No Known Allergies (Unverified , 09/16/16) Social History Prior smoker Physical Exam Vital Signs Vital Signs Date Time Temp Pulse Resp B/P Pulse Ox O2 Delivery O2 Flow Rate FiO2 10/08/16 08:02 88 10/08/16 08:02 98.7 75 16 155/70 95 10/08/16 04:00 90 10/08/16 04:00 98.2 90 16 149/86 97 10/08/16 00:00 92 10/08/16 00:00 98.4 92 18 149/76 92 10/07/16 20:00 88 10/07/16 20:00 98.2 88 18 119/58 93 10/07/16 16:39 98.9 93 18 110/59 94 10/07/16 16:39 93 10/07/16 12:15 94 10/07/16 12:15 98.1 98 18 160/86 96 Physical Exam GENERAL: This is a well-nourished, well-developed patient, presently intubated on the operating table. SKIN: No rashes, ecchymoses or lesions. Cool and dry. HEAD: Atraumatic. Normocephalic. ENT: Nose without bleeding, Airway is intubated. NECK: Trachea midline. No JVD or lymphadenopathy. Supple, nontender. CARDIOVASCULAR: Regular rate and rhythm without murmurs, gallops, or rubs. RESPIRATORY: Clear to auscultation. Breath sounds equal bilaterally. No wheezes , rales, or rhonchi. GASTROINTESTINAL: Abdomen soft, non-tender, nondistended. No hepato-splenomegaly , or palpable masses. No guarding. GENITOURINARY: Blood per the meatus MUSCULOSKELETAL: Extremities without clubbing. NEUROLOGICAL: Unable to assess Laboratory Laboratory Tests Test 10/07/16 10/08/16 10/08/16 17:58 03:14 07:00 Activated Partial 57.5 27.1 28.1 Thromboplast Time Result Diagram: 10/06/1621310/05/16 0209 Course Initially attempt was made to place a 16 [place] coud catheter under sterile technique. This was unsuccessful. Procedure note: Flexible cystoscopy was performed at the patient was reprepped and draped in usual sterile fashion. Blood was noted to be near the bulbar urethra with some evidence of trauma. I was able to pass my scope into the bladder and an Amplatz Super Stiff wire was passed through the scope. A 16 [place] tip catheter was then slid over the wire without difficulty. 10 cc were placed in the balloon and he tolerated the procedure well. Assessment and Plan Assessment and Plan 71 year-old male with difficult Valdovinos placement. Status post cystoscopy with Valdovinos placed over a wire without difficulty. Maintain catheter for the next 4-5 days and would recommend a void trial at that time. Start Flomax 0.4 mg by mouth daily at bedtime postoperatively. Thank you for the consult and for allowing me to participate in the care of this patient. Shahid Lindsey DO Oct 08, 2016 11:35
[2016-10-08] MEDS ORDERED: PHENYLEPH/NS 1000 MCG/10 ML SYR IV ONE (12:00)
[2016-10-08] MEDS ORDERED: LACTATED RINGER'S 1000 ML INJ 1,000 ML IV ONE (12:00)
[2016-10-08] MEDS ORDERED: PHENYLEPHRINE HCL 10 MG/ML VIAL IV ONE (12:00)
[2016-10-08] MEDS ORDERED: NEOSTIGMINE 3 MG/3 ML SYR IV ONE (12:00)
[2016-10-08] MEDS ORDERED: PROPOFOL 200 MG/20 ML AMP IV ONE (12:00)
[2016-10-08] MEDS ORDERED: DO NOT ADM ANY ANTICOAGULANT DRUGS XX PRN (13:25)
[2016-10-08] MEDS: SODIUM CHLOR 0.9% 1000 ML INJ 1,000 ML IV SCH (13:40)
--- NOTE | 2016-10-08 13:40 | HHI.PR ---
Immediate Post Op Note Procedure Date: Oct 08, 2016 Pre Op Diagnosis: L LE rest pain, failed distal bypass Post Op Diagnosis: L LE rest pain, failed distal bypass Surgeon: Yo Fisher Geographic Information Systems Manager(s): Renetta Colbert Procedure: L fem-PT with cryo Re-do bypass Findings: small patent PT at ankle Additional Information: Palpable graft pulse at conclusion of case (tunneled subcutaneously) Doppler signal in foot Complications: none apparent Specimen(s) removed: none Estimated blood loss: 200 mL Anesthesia: General Drains: None Fluids: 1300 mL x'oid; 800 mL UOP IVF Patient to: PACU Patient Condition: Good Implant/Devices: SEE IMPLANT LOG (if applicable) Date/Time of Procedure: SEE SURGICAL CARE RECORD Yo Fisher MD Oct 08, 2016 13:40
[2016-10-08] MEDS ORDERED: *morphine SULFATE 8 MG/ML PERIprocedure ONLY ONE ×2 (13:44→14:25)
[2016-10-08] MEDS ORDERED: ONDANSETRON HCL 4 MG/2 ML VIAL ONE (13:44)
[2016-10-08] MEDS ORDERED: DEXTROSE 50% IN WATER 50 ML VIAL(D50) IV PUSH PRN (13:45)
[2016-10-08] MEDS ORDERED: ACETAMINOPHEN 325 MG TAB PO PRN (13:45)
[2016-10-08] MEDS ORDERED: GLUCAGON 1 MG/ML VIAL OTHER PRN (13:45)
[2016-10-08] MEDS ORDERED: MAGNESIUM HYDROXIDE SUSP 30 ML CUP PO PRN (13:45)
[2016-10-08] MEDS ORDERED: HEPARIN-D5W INJ 250 ML IV SCH (14:00)
[2016-10-08] MEDS ORDERED: MORPHINE SULFATE 4 MG/ML INJ ONE (14:04)
[2016-10-08] MEDS ORDERED: PROMETHAZINE INJ 25 MG/ML VIAL ONE (14:25)
[2016-10-08 15:56] LABS: APTT (PATIENT) 43.7 SEC (24.3-30.1); PROTHROMBIN TIME - PATIENT 11.3 SEC (9.8-11.6)
[2016-10-08] MEDS: INSULIN NovoLIN REGULAR SUPPLEMENTAL SCALE SQ SCH (17:29)
[2016-10-08] MEDS: SODIUM BICARBONATE 8.4% INJ 50 MEQ in DEXTROSE 5% IN WATE 1000ML INJ 1,000 ML IV SCH ×2 (17:31)
[2016-10-08] MEDS ORDERED: PANTOPRAZOLE SOD 40 MG DELAYED RELEASE TAB PO SCH (21:00)
[2016-10-08] MEDS ORDERED: METOPROLOL TARTRATE 25 MG TAB PO SCH (21:00)
[2016-10-08 21:56] LABS: APTT (PATIENT) 33.4 SEC (24.3-30.1)
[2016-10-09] VITALS (25 sets, daily range): BP systolic 78–137; BP diastolic 46–81; PULSE 86–126; RESP 16–20; TEMP 98.1–100.8; O2SAT 93–99
[2016-10-09] MEDS: INSULIN NovoLIN REGULAR SUPPLEMENTAL SCALE SQ SCH ×4 (06:00→16:13)
--- NOTE | 2016-10-09 07:52 | PD.VS.PN ---
Subjective POD #: 1 Procedure(s): Redo L fem-PT Subjective/Hospital Course Ok this morning, does c/o being tired Foot hurts less Objective Vitals/I&O Date Time Temp Pulse Resp B/P Pulse Ox O2 Delivery O2 Flow Rate FiO2 10/09/16 06:00 102 10/09/16 05:00 106 10/09/16 04:00 98 10/09/16 04:00 98.8 102 20 97 10/09/16 03:00 92 10/09/16 02:00 96 10/09/16 01:00 96 10/09/16 00:00 102 10/09/16 00:00 98.9 97 20 100/49 97 10/08/16 23:00 102 10/08/16 22:00 104 10/08/16 21:00 126 10/08/16 20:00 100 10/08/16 20:00 98.8 102 20 113/64 98 10/08/16 19:58 97 Nasal Cannula 2.00 10/08/16 16:44 93 Nasal Cannula 1.00 10/08/16 16:23 98.3 99 16 155/70 100 10/08/16 16:23 99 10/08/16 15:00 98.4 99 15 133/62 99 Nasal Cannula 2 10/08/16 14:45 98 15 111/57 99 Nasal Cannula 2 10/08/16 14:15 103 15 138/73 99 Nasal Cannula 2 10/08/16 14:00 99 15 151/75 99 Nasal Cannula 2 10/08/16 13:45 92 15 136/69 99 Nasal Cannula 2 10/08/16 13:30 94 16 114/53 99 Nasal Cannula 2 10/08/16 13:25 97.9 95 18 122/63 94 Room Air 10/08/16 08:02 88 10/08/16 08:02 98.7 75 16 155/70 95 10/09/16 10/09/16 10/09/16 07:00 15:00 23:00 Intake Total 1478 ml Output Total 1250 ml Balance 228 ml Exam: resting comfortably Foot warm Incision dressings c/d/i Pulses: Strong PT Doppler signal in L foot Laboratory Laboratory Tests Test 10/08/16 10/08/16 15:41 21:43 Prothrombin Time 11.3 Prothromb Time International 1.0 Ratio Activated Partial 43.7 33.4 Thromboplast Time Assessment and Plan Plan 1. Bypass patent continue hep gtt for bypass patency - transition to therapeutic lovenox tomorrrow 2. OOB/PT 3. Valdovinos in until Sat because of cystoscopically placing intraoperatively 4. Increase beta blockade today 5. Cardiac diet Discharge Planning Will need SNF, likely Thursday Yo Fisher MD Oct 09, 2016 07:52
[2016-10-09] MEDS ORDERED: ATORVASTATIN 40 MG TAB PO SCH (09:00)
[2016-10-09] MEDS: amLODIPine BESYLATE 5 MG TAB PO SCH ×2 (09:00→09:35)
[2016-10-09] MEDS: POLYSACCHARIDE IRON COMPLEX 150 MG CAP PO SCH ×2 (09:00→21:00)
[2016-10-09] MEDS: TAMSULOSIN HCL 0.4 MG CAP PO SCH ×2 (09:00→09:35)
[2016-10-09] MEDS: LISINOPRIL 10 MG TAB PO SCH ×2 (09:00→09:35)
[2016-10-09] MEDS ORDERED: SERTRALINE HCL 50 MG TAB PO SCH (09:00)
[2016-10-09] MEDS: METOPROLOL TARTRATE 50 MG TAB PO SCH ×3 (09:00→21:00)
[2016-10-09] MEDS ORDERED: ASPIRIN EC 325 MG TABEC PO SCH (09:00)
[2016-10-09] MEDS ORDERED: LISINOPRIL 10 MG TAB PO SCH (09:00)
[2016-10-09] MEDS: ATORVASTATIN 40 MG TAB PO SCH (09:00)
[2016-10-09] MEDS: DOCUSATE SODIUM 100 MG CAP PO SCH ×2 (09:00→21:00)
[2016-10-09] MEDS ORDERED: amLODIPine BESYLATE 5 MG TAB PO SCH (09:00)
[2016-10-09] MEDS ORDERED: TAMSULOSIN HCL 0.4 MG CAP PO SCH (09:00)
[2016-10-09] MEDS: ASPIRIN EC 81 MG TABEC PO SCH ×2 (09:00→09:36)
[2016-10-09] MEDS: SERTRALINE HCL 50 MG TAB PO SCH ×2 (09:00→09:36)
[2016-10-09] MEDS: CILOSTAZOL 100 MG TAB PO SCH ×2 (09:00→09:35)
[2016-10-09] MEDS: oxyCODONE/ACETAMINOPHEN 5 MG/325 MG TAB PO PRN ×2 (09:35→11:35)
[2016-10-09] MEDS: SODIUM CHLOR 0.9% 1000 ML INJ 1,000 ML IV SCH (09:40)
[2016-10-09] MEDS: DEXTROSE 5%-LACTATED RING INJ 1,000 ML IV SCH (10:50)
[2016-10-09] MEDS: SODIUM BICARBONATE 8.4% INJ 50 MEQ in DEXTROSE 5% IN WATE 1000ML INJ 1,000 ML IV SCH ×2 (16:13)
--- NOTE | 2016-10-09 20:28 | MP ---
cc: BLANCA FISHER MD DATE OF SURGERY 10/08/16 PREOPERATIVE DIAGNOSIS Left lower extremity rest pain, peripheral arterial occlusive disease, failed distal bypass. POSTOPERATIVE DIAGNOSIS Left lower extremity rest pain, peripheral arterial occlusive disease, failed distal bypass. PROCEDURE 1. Left femoral artery to posterior tibial artery bypass with cryopreserved vein. 2. Redo bypass ATTENDING SURGEON Vini Fisher MD ANESTHESIA General. INDICATIONS Mr. Lindsey is a 71 year old gentleman with left lower extremity rest pain and failed distal bypasses times two. He had an angiogram showing that his perimalleolar posterior tibial artery was sufficient for bypass. He is taken to the operating room for this. PROCEDURE IN DETAIL Informed consent was obtained. The patient was taken to the operating room, placed supine on the operating room table. An appropriate time out as taken to ensure the patient's identity, the operative site, and planned procedure. The administration of a gram of vancomycin was initiated prior to skin incision, will be discontinued after a single preoperative dose. Vancomycin was chosen because of the patient's hospitalization preoperatively being greater than 48 hours. Everyone in the room agreed with time out and we proceeded. He was prepped from his nipples to his toes. Incision was made in the distal calf, carried down through the subcutaneous tissue with electrocautery. The posterior tibial artery was identified and dissected free for several centimeters. A separate incision was made in the patient's groin, carried down to subcutaneous tissue with electrocautery. Scar tissue was encountered and the previous fem-tib bypass was encountered, encircled with vessel loop and dissected back to where it originated at the distal aspect of fem-fem bypass. This bypass was clamped proximally and clipped with a large hemoclip distally and transected. Upon opening the bypass, we were able to express the fibrin plug and there was good inflow to the bypass. Cryopreserved saphenous vein was brought up on the field and prepared in the standard fashion. A tunnel was then created between the two incisions. The patient was systemically heparinized and throughout the remainder of the case the ACT was kept greater than 250. The graft was flushed and sewn end to end to the previous graft using running 5-0 Prolene suture. At the completion, it was flushed and noted to be hemostatic. The CryoVein was clamped distally, marked for orientation and passed through the tunnel taking caution not to twist it. The proximal and distal control of the posterior tibial artery were obtained with Pee clamps and a longitudinal arteriotomy was made with an 11 blade and extended with Ronn scissors. The graft was cut to appropriate length, spatulated and sewn end-to-side with running 6-0 Prolene suture. At the completion it was flushed, noted to be hemostatic. The clamps were released. There was a nice palpable graft pulse. The graft was tunneled subcutaneously. There was a strong distal posterior tibial artery signal. The wounds were irrigated, made hemostatic and closed with 2-0 polysorb, 3-0 polysorb and 4-0 Monocryl in the groin and 2-0 polysorb, 3-0 polysorb and skin fernando in the leg. Sponge and needle counts correct at the end of the case. I was present and scrubbed for the entire procedure. MD DENTON Sawant/ /2:51 PM /8:03 PM MTDRene
[2016-10-09] MEDS: PANTOPRAZOLE SOD 40 MG DELAYED RELEASE TAB PO SCH (21:00)
[2016-10-10] VITALS (25 sets, daily range): BP systolic 96–129; BP diastolic 48–71; PULSE 100–131; RESP 14–20; TEMP 98.1–100.2; O2SAT 94–96
[2016-10-10] MEDS: INSULIN NovoLIN REGULAR SUPPLEMENTAL SCALE SQ SCH ×4 (06:00→16:57)
[2016-10-10 08:11] LABS: APTT (PATIENT) 30.1 SEC (24.3-30.1)
[2016-10-10 08:18] LABS: BICARBONATE 21.7 MEQ/L (21.0-32.0); POTASSIUM 3.9 MEQ/L (3.5-5.1)
[2016-10-10] MEDS: ASPIRIN EC 81 MG TABEC PO SCH (08:38)
[2016-10-10] MEDS: DOCUSATE SODIUM 100 MG CAP PO SCH ×2 (08:38→21:00)
[2016-10-10] MEDS: POLYSACCHARIDE IRON COMPLEX 150 MG CAP PO SCH ×2 (08:39→21:00)
[2016-10-10] MEDS: TAMSULOSIN HCL 0.4 MG CAP PO SCH (08:39)
[2016-10-10] MEDS: CILOSTAZOL 100 MG TAB PO SCH (08:39)
[2016-10-10] MEDS: SERTRALINE HCL 50 MG TAB PO SCH (08:39)
[2016-10-10] MEDS: ATORVASTATIN 40 MG TAB PO SCH (08:39)
[2016-10-10] MEDS: amLODIPine BESYLATE 5 MG TAB PO SCH (08:39)
[2016-10-10] MEDS: METOPROLOL TARTRATE 50 MG TAB PO SCH ×2 (08:39→21:00)
[2016-10-10] MEDS: LISINOPRIL 10 MG TAB PO SCH (08:39)
[2016-10-10] MEDS: DEXTROSE 5%-LACTATED RING INJ 1,000 ML IV SCH (10:56)
[2016-10-10 11:01] LABS: HEMATOCRIT 25.1 % (39.0-51.0); MEAN CELL VOLUME 91.9 FL (80.0-100.0); MEAN CORPUSCULAR HEMOGLOBIN 29.7 PG (27.0-34.0); MEAN CORPUSCULAR HGB CONC 32.4 % (32.0-36.0); PLATELET COUNT 302 TH/MM3 (150-450); RED BLOOD COUNT 2.73 MIL/MM3 (4.50-5.90); RED CELL DISTRIBUTION WIDTH 14.2 % (11.6-17.2); REVIEW FLAG FINAL; WHITE BLOOD COUNT 10.8 TH/MM3 (4.0-11.0)
[2016-10-10 13:30] LABS: APTT (PATIENT) 31.7 SEC (24.3-30.1)
--- NOTE | 2016-10-10 13:58 | PD.VS.PN ---
Subjective POD #: 2 Procedure(s): Redo L fem-PT Subjective/Hospital Course Resting this morning Intermittently refusing RN care Refused PT Notes he'll walk when he goes home Objective Vitals/I&O Date Time Temp Pulse Resp B/P Pulse Ox O2 Delivery O2 Flow Rate FiO2 10/10/16 12:00 108 10/10/16 12:00 99.4 106 14 96/49 96 10/10/16 11:00 112 10/10/16 10:00 116 10/10/16 09:00 108 10/10/16 08:27 Nasal Cannula 10/10/16 08:00 109 10/10/16 08:00 99.1 109 16 129/71 96 10/10/16 07:00 114 10/10/16 07:00 109 10/10/16 07:00 98.1 102 16 118/55 94 10/10/16 06:00 122 10/10/16 05:00 112 10/10/16 04:00 100.2 115 16 99/48 95 10/10/16 04:00 131 10/10/16 03:00 112 10/10/16 02:00 112 10/10/16 01:00 108 10/10/16 00:00 111 10/09/16 23:00 126 10/09/16 22:00 106 10/09/16 21:00 106 10/09/16 20:00 100.8 109 16 78/46 96 10/09/16 20:00 103 10/09/16 19:00 104 10/09/16 18:00 106 10/09/16 17:00 96 10/09/16 16:00 98.1 102 16 118/55 94 10/09/16 16:00 91 10/09/16 15:00 88 10/09/16 14:00 86 Exam: foot ok, motor intact, warm Laboratory Laboratory Tests Test 10/10/16 10/10/16 10/10/16 07:10 10:00 13:10 Activated Partial 30.1 31.7 Thromboplast Time Sodium Level 140 Potassium Level 3.9 Chloride Level 108 Carbon Dioxide Level 21.7 Anion Gap 10 Blood Urea Nitrogen 11 Creatinine 0.98 Estimat Glomerular Filtration 91 Rate Random Glucose 101 Calcium Level 8.1 White Blood Count 10.8 Red Blood Count 2.73 Hemoglobin 8.1 Hematocrit 25.1 Mean Corpuscular Volume 91.9 Mean Corpuscular Hemoglobin 29.7 Mean Corpuscular Hemoglobin 32.4 Concent Red Cell Distribution Width 14.2 Platelet Count 302 Mean Platelet Volume 8.4 Assessment and Plan Plan 1. Bypass patent transition hep gtt to therapeutic lovenox 2. OOB/PT 3. Valdovinos in until Sat because of cystoscopically placing intraoperatively 4. Cardiac diet Discharge Planning Will need SNF, likely Thursday Yo Fisher MD Oct 10, 2016 13:57
[2016-10-10] MEDS: ENOXAPARIN SODIUM 60 MG/0.6 ML SYRINGE SQ SCH (14:00)
[2016-10-10] MEDS: MORPHINE SULFATE 4 MG/ML INJ IV PRN (15:53)
[2016-10-10] MEDS: PANTOPRAZOLE SOD 40 MG DELAYED RELEASE TAB PO SCH (21:00)
[2016-10-11] VITALS (23 sets, daily range): BP systolic 106–126; BP diastolic 63–73; PULSE 77–117; RESP 16–20; TEMP 98–98.9; O2SAT 94–97
[2016-10-11] MEDS: ENOXAPARIN SODIUM 60 MG/0.6 ML SYRINGE SQ SCH ×2 (02:31→14:00)
[2016-10-11] MEDS: oxyCODONE/ACETAMINOPHEN 5 MG/325 MG TAB PO PRN ×2 (04:19→10:34)
[2016-10-11] MEDS: INSULIN NovoLIN REGULAR SUPPLEMENTAL SCALE SQ SCH ×4 (06:00→17:03)
[2016-10-11 08:01] LABS: APTT (PATIENT) 27.9 SEC (24.3-30.1)
[2016-10-11] MEDS: TAMSULOSIN HCL 0.4 MG CAP PO SCH (10:26)
[2016-10-11] MEDS: ASPIRIN EC 81 MG TABEC PO SCH (10:26)
[2016-10-11] MEDS: DOCUSATE SODIUM 100 MG CAP PO SCH ×2 (10:26→21:00)
[2016-10-11] MEDS: amLODIPine BESYLATE 5 MG TAB PO SCH (10:27)
[2016-10-11] MEDS: METOPROLOL TARTRATE 50 MG TAB PO SCH ×2 (10:27→21:00)
[2016-10-11] MEDS: ATORVASTATIN 40 MG TAB PO SCH ×3 (10:27→18:25)
[2016-10-11] MEDS: POLYSACCHARIDE IRON COMPLEX 150 MG CAP PO SCH ×4 (10:28→21:00)
[2016-10-11] MEDS: SERTRALINE HCL 50 MG TAB PO SCH ×3 (10:30→18:25)
[2016-10-11] MEDS: LISINOPRIL 10 MG TAB PO SCH ×3 (10:30→18:25)
[2016-10-11] MEDS: CILOSTAZOL 100 MG TAB PO SCH ×3 (10:30→18:24)
--- NOTE | 2016-10-11 11:44 | PD.VS.PN ---
Subjective POD #: 3 Procedure(s): Redo L fem-PT Subjective/Hospital Course Refused PT Notes he'll walk when he goes home Foot warm Objective Vitals/I&O Date Time Temp Pulse Resp B/P Pulse Ox O2 Delivery O2 Flow Rate FiO2 10/11/16 11:30 16 10/11/16 10:18 98.0 95 16 126/70 96 10/11/16 08:17 92 10/11/16 07:15 Room Air 10/11/16 07:00 97 10/11/16 06:00 107 10/11/16 05:00 110 10/11/16 04:00 98.4 117 18 108/64 97 10/11/16 04:00 117 10/11/16 04:00 Room Air 10/11/16 03:00 113 10/11/16 02:00 109 10/11/16 01:00 103 10/11/16 00:00 107 10/11/16 00:00 98.2 92 18 106/63 94 10/11/16 00:00 Room Air 10/10/16 23:00 111 10/10/16 22:09 95 21 10/10/16 22:00 101 10/10/16 21:00 114 10/10/16 20:00 99.0 100 20 100/61 95 10/10/16 20:00 100 10/10/16 18:00 100 10/10/16 17:00 102 10/10/16 16:00 99.2 103 16 104/55 95 10/10/16 16:00 104 10/10/16 15:58 16 10/10/16 15:14 103 10/10/16 15:00 104 10/10/16 14:00 110 10/10/16 13:00 102 10/10/16 12:00 108 10/10/16 12:00 99.4 106 14 96/49 96 Exam: Strong PT signal slight odor distal calf wound at area of prior incision necrosis Laboratory Laboratory Tests Test 10/10/16 10/11/16 13:10 06:30 Activated Partial 31.7 27.9 Thromboplast Time Assessment and Plan Plan 1. Bypass patent on therapeutic lovenox 2. OOB/PT 3. Valdovinos out today 4. Cardiac diet 5. Dry dressing to leg wound Discharge Planning Will need SNF, likely Thursday Yo Fisher MD Oct 11, 2016 11:44
[2016-10-11] MEDS: PANTOPRAZOLE SOD 40 MG DELAYED RELEASE TAB PO SCH (21:00)
[2016-10-12] VITALS (26 sets, daily range): BP systolic 96–124; BP diastolic 52–72; PULSE 74–118; RESP 16–20; TEMP 98.1–99.1; O2SAT 95–97
[2016-10-12] MEDS: ENOXAPARIN SODIUM 60 MG/0.6 ML SYRINGE SQ SCH ×2 (02:00→15:06)
[2016-10-12] MEDS: INSULIN NovoLIN REGULAR SUPPLEMENTAL SCALE SQ SCH ×5 (05:46→23:54)
[2016-10-12 06:03] LABS: HEMATOCRIT 27.5 % (39.0-51.0); MEAN CELL VOLUME 90.5 FL (80.0-100.0); MEAN CORPUSCULAR HEMOGLOBIN 29.2 PG (27.0-34.0); MEAN CORPUSCULAR HGB CONC 32.3 % (32.0-36.0); PLATELET COUNT 330 TH/MM3 (150-450); RED BLOOD COUNT 3.04 MIL/MM3 (4.50-5.90); RED CELL DISTRIBUTION WIDTH 14.1 % (11.6-17.2); REVIEW FLAG FINAL; WHITE BLOOD COUNT 6.8 TH/MM3 (4.0-11.0)
[2016-10-12 06:13] LABS: APTT (PATIENT) 27.1 SEC (24.3-30.1)
[2016-10-12] MEDS: ATORVASTATIN 40 MG TAB PO SCH (08:28)
[2016-10-12] MEDS: amLODIPine BESYLATE 5 MG TAB PO SCH (08:28)
[2016-10-12] MEDS: LISINOPRIL 10 MG TAB PO SCH (08:28)
[2016-10-12] MEDS: ASPIRIN EC 81 MG TABEC PO SCH (08:28)
[2016-10-12] MEDS: DOCUSATE SODIUM 100 MG CAP PO SCH ×2 (08:29→20:48)
[2016-10-12] MEDS: TAMSULOSIN HCL 0.4 MG CAP PO SCH (08:29)
[2016-10-12] MEDS: SERTRALINE HCL 50 MG TAB PO SCH (08:30)
[2016-10-12] MEDS: CILOSTAZOL 100 MG TAB PO SCH (08:30)
[2016-10-12] MEDS: POLYSACCHARIDE IRON COMPLEX 150 MG CAP PO SCH ×2 (08:30→20:49)
[2016-10-12] MEDS: METOPROLOL TARTRATE 50 MG TAB PO SCH ×2 (08:30→20:48)
--- NOTE | 2016-10-12 11:03 | PD.VS.PN ---
Subjective POD #: 4 Procedure(s): Redo L fem-PT Subjective/Hospital Course Doing well Better spirits today Foot warm Cecy po OOB today Objective Vitals/I&O Date Time Temp Pulse Resp B/P Pulse Ox O2 Delivery O2 Flow Rate FiO2 10/12/16 10:11 97 10/12/16 05:59 108 10/12/16 05:00 106 10/12/16 04:24 98.1 117 18 104/54 95 10/12/16 04:24 Room Air 10/12/16 04:00 117 10/12/16 03:00 111 10/12/16 02:00 110 10/12/16 01:00 104 10/12/16 00:00 Room Air 10/12/16 00:00 118 10/12/16 00:00 98.7 118 20 113/69 96 10/11/16 23:00 112 10/11/16 22:00 109 10/11/16 21:00 111 10/11/16 20:00 Room Air 10/11/16 20:00 98 10/11/16 20:00 98.9 98 20 118/73 97 10/11/16 16:07 91 10/11/16 15:00 79 10/11/16 14:00 90 10/11/16 13:00 77 10/11/16 12:02 98.2 81 16 121/69 97 10/11/16 12:00 81 10/11/16 11:30 16 10/12/16 10/12/16 10/12/16 07:00 15:00 23:00 Intake Total 490 ml Output Total 750 ml Balance -260 ml Exam: L groin c/d/i - removed VAC today L calf with mid wound necrosis Pulses: strong PT signal Laboratory Laboratory Tests Test 10/12/16 05:16 White Blood Count 6.8 Red Blood Count 3.04 Hemoglobin 8.9 Hematocrit 27.5 Mean Corpuscular Volume 90.5 Mean Corpuscular Hemoglobin 29.2 Mean Corpuscular Hemoglobin 32.3 Concent Red Cell Distribution Width 14.1 Platelet Count 330 Mean Platelet Volume 7.9 Activated Partial 27.1 Thromboplast Time Assessment and Plan Plan 1. Bypass patent on therapeutic lovenox 2. OOB/PT 3. Increase B blockade 4. Cardiac diet 5. Dry dressing to leg wound Discharge Planning Will need SNF, likely Thursday Yo Fisher MD Oct 12, 2016 11:03
[2016-10-12] MEDS: PANTOPRAZOLE SOD 40 MG DELAYED RELEASE TAB PO SCH (20:49)
[2016-10-13] VITALS (21 sets, daily range): BP systolic 90–135; BP diastolic 54–77; PULSE 72–115; RESP 16–18; TEMP 97.8–98.6; O2SAT 96–99
[2016-10-13] MEDS: ENOXAPARIN SODIUM 60 MG/0.6 ML SYRINGE SQ SCH ×2 (02:39→14:14)
[2016-10-13] MEDS: oxyCODONE/ACETAMINOPHEN 5 MG/325 MG TAB PO PRN ×2 (05:39→23:52)
[2016-10-13] MEDS: INSULIN NovoLIN REGULAR SUPPLEMENTAL SCALE SQ SCH ×3 (06:00→18:00)
[2016-10-13] MEDS: TAMSULOSIN HCL 0.4 MG CAP PO SCH (09:00)
[2016-10-13] MEDS: SERTRALINE HCL 50 MG TAB PO SCH (09:00)
[2016-10-13] MEDS: amLODIPine BESYLATE 5 MG TAB PO SCH (09:17)
[2016-10-13] MEDS: ASPIRIN EC 81 MG TABEC PO SCH (09:17)
[2016-10-13] MEDS: LISINOPRIL 10 MG TAB PO SCH (09:17)
[2016-10-13] MEDS: ATORVASTATIN 40 MG TAB PO SCH (09:17)
[2016-10-13] MEDS: METOPROLOL TARTRATE 50 MG TAB PO SCH ×2 (09:17→23:53)
[2016-10-13] MEDS: CILOSTAZOL 100 MG TAB PO SCH (09:18)
[2016-10-13] MEDS: DOCUSATE SODIUM 100 MG CAP PO SCH ×2 (09:21→23:53)
[2016-10-13] MEDS: POLYSACCHARIDE IRON COMPLEX 150 MG CAP PO SCH ×2 (09:21→23:53)
--- NOTE | 2016-10-13 15:06 | PD.VS.PN ---
Subjective Subjective/Hospital Course Pt alert and oriented in nad, laying in bed this afternoon states his pain is getting better to his left foot. Objective Vitals/I&O Date Time Temp Pulse Resp B/P Pulse Ox O2 Delivery O2 Flow Rate FiO2 10/13/16 14:10 98 10/13/16 13:25 96 21 10/13/16 12:33 97.9 86 18 114/60 96 10/13/16 12:33 86 10/13/16 10:10 87 10/13/16 08:15 99 Room Air 10/13/16 08:15 107 10/13/16 08:15 97.8 100 18 135/77 99 10/13/16 06:00 100 10/13/16 05:00 103 10/13/16 04:00 105 10/13/16 04:00 Room Air 10/13/16 03:00 115 10/13/16 02:00 100 10/13/16 01:00 101 10/13/16 00:00 98.6 108 18 105/64 97 10/13/16 00:00 Room Air 10/13/16 00:00 108 10/12/16 23:00 111 10/12/16 22:00 113 10/12/16 21:00 100 10/12/16 20:00 Room Air 10/12/16 20:00 98.3 117 20 111/62 96 10/12/16 20:00 117 10/12/16 18:14 97 21 10/12/16 18:10 113 10/12/16 17:00 102 10/12/16 16:00 99.1 99 16 96/52 97 10/12/16 16:00 110 10/12/16 15:00 97 Physical Exam GENERAL: A&OX3, NAD, Affect appropriate to situation SKIN: Warm and dry. Bilat feet warm to touch, Bilat groin incisions intact no Redness, Drainage or swelling. Right LE (Calf region) fernando intact with slight purulent drainage noted to center of incision EYES: No scleral icterus. NECK: Supple, trachea midline. No JVD or lymphadenopathy. CARDIOVASCULAR: Regular rate and rhythm without murmurs, gallops, or rubs. RESPIRATORY: Breath sounds equal bilaterally. No accessory muscle use. GASTROINTESTINAL: Abdomen soft, non-tender, nondistended. BS present in all 4 quad MUSCULOSKELETAL: No cyanosis, or edema. BACK: Nontender without obvious deformity. No CVA tenderness. Faint palpable DP noted to Left Foot with weak doppler signals, Strong triphasic signals noted to right DP/PT Laboratory Allergies Coded Allergies Type Severity Reaction Last Updated Verified No Known Allergies 09/16/16 No /18/////// 06:00 18:00 06:00 18:00 06:00 18:00 Intake Total 490 ml 240 ml 490 ml 480 ml 482 ml Output Total 1060 ml 300 ml 900 ml 275 ml 550 ml Balance -570 ml -60 ml -410 ml 205 ml -68 ml Intake Oral 480 ml 240 ml 480 ml 480 ml 480 ml IV Total 10 ml 10 ml 2 ml Output Urine Total 1060 ml 300 ml 900 ml 275 ml 550 ml Bladder Scan Volume Amount 27 ml 75 ml 60 ml # Voids 1 # Bowel Movements 0 0 1 0 Laboratory Tests Test 10/11/16 10/12/16 06:30 05:16 Activated Partial 27.9 SEC 27.1 SEC Thromboplast Time White Blood Count 6.8 TH/MM3 Red Blood Count 3.04 MIL/MM3 Hemoglobin 8.9 GM/DL Hematocrit 27.5 % Mean Corpuscular Volume 90.5 FL Mean Corpuscular Hemoglobin 29.2 PG Mean Corpuscular Hemoglobin 32.3 % Concent Red Cell Distribution Width 14.1 % Platelet Count 330 TH/MM3 Mean Platelet Volume 7.9 FL Procedure Category Date Status Time Act Partial Throm LAB 10/11/16 Complete Time (Ptt) 06:00 Urinary Catheter - [place] 10/11/16 Transmitted Remove 11:42 ^ Other Nursing Orders HAVEN 10/11/16 In Process 11:42 ^ Other Nursing Orders HAVEN 10/11/16 In Process 11:42 Cbc No Diff, Includes LAB 10/12/16 Complete Plts 06:00 Act Partial Throm LAB 10/12/16 Complete Time (Ptt) 06:00 Metoprolol Tartrate MED 10/12/16 In Process (Lopressor) 21:00 ^ Instruction HAVEN 10/12/16 In Process 14:25 Vital Signs Date Time Temp Pulse Resp B/P Pulse Ox O2 Delivery O2 Flow Rate FiO2 10/13/16 14:10 98 10/13/16 13:25 96 21 10/13/16 12:33 97.9 86 18 114/60 96 10/13/16 12:33 86 10/13/16 10:10 87 10/13/16 08:15 99 Room Air 10/13/16 08:15 107 10/13/16 08:15 97.8 100 18 135/77 99 10/13/16 06:00 100 10/13/16 05:00 103 10/13/16 04:00 105 10/13/16 04:00 Room Air 10/13/16 03:00 115 10/13/16 02:00 100 10/13/16 01:00 101 10/13/16 00:00 98.6 108 18 105/64 97 10/13/16 00:00 Room Air 10/13/16 00:00 108 10/12/16 23:00 111 10/12/16 22:00 113 10/12/16 21:00 100 10/12/16 20:00 Room Air 10/12/16 20:00 98.3 117 20 111/62 96 10/12/16 20:00 117 10/12/16 18:14 97 21 10/12/16 18:10 113 10/12/16 17:00 102 10/12/16 16:00 99.1 99 16 96/52 97 10/12/16 16:00 110 10/12/16 15:00 97 10/12/16 14:00 74 10/12/16 13:00 88 10/12/16 12:00 98.9 105 16 124/60 95 10/12/16 12:00 108 10/12/16 11:00 116 10/12/16 10:11 97 10/12/16 10:00 116 10/12/16 09:00 106 10/12/16 08:00 95 Room Air 10/12/16 08:00 110 10/12/16 08:00 98.1 110 16 107/59 95 10/12/16 07:00 116 10/12/16 05:59 108 10/12/16 05:00 106 10/12/16 04:24 98.1 117 18 104/54 95 10/12/16 04:24 Room Air 10/12/16 04:00 117 10/12/16 03:00 111 10/12/16 02:00 110 10/12/16 01:00 104 10/12/16 00:00 Room Air 10/12/16 00:00 118 10/12/16 00:00 98.7 118 20 113/69 96 10/11/16 23:00 112 10/11/16 22:00 109 10/11/16 21:00 111 10/11/16 20:00 Room Air 10/11/16 20:00 98 10/11/16 20:00 98.9 98 20 118/73 97 10/11/16 16:07 91 10/11/16 15:00 79 10/11/16 14:00 90 10/11/16 13:00 77 10/11/16 12:02 98.2 81 16 121/69 97 10/11/16 12:00 81 10/11/16 11:30 16 10/11/16 11:00 99 10/11/16 10:18 98.0 95 16 126/70 96 10/11/16 10:00 96 10/11/16 09:00 91 10/11/16 08:17 92 10/11/16 07:15 Room Air 10/11/16 07:00 97 10/11/16 06:00 107 10/11/16 05:00 110 10/11/16 04:00 98.4 117 18 108/64 97 10/11/16 04:00 117 10/11/16 04:00 Room Air 10/11/16 03:00 113 10/11/16 02:00 109 10/11/16 01:00 103 10/11/16 00:00 107 10/11/16 00:00 98.2 92 18 106/63 94 10/11/16 00:00 Room Air 10/10/16 23:00 111 10/10/16 22:09 95 21 10/10/16 22:00 101 10/10/16 21:00 114 10/10/16 20:00 99.0 100 20 100/61 95 10/10/16 20:00 100 10/10/16 18:00 100 10/10/16 17:00 102 10/10/16 16:00 99.2 103 16 104/55 95 10/10/16 16:00 104 10/10/16 15:58 16 10/10/16 15:14 103 Assessment and Plan Plan OOB/PT Change dressing to right thigh daily as ordered Placement to SNF with PT Discharge Planning Will need SNF, once placed will be ready for D/C Vero Kimble Oct 13, 2016 15:06
[2016-10-13] MEDS: PANTOPRAZOLE SOD 40 MG DELAYED RELEASE TAB PO SCH (23:53)
[2016-10-14] VITALS (22 sets, daily range): BP systolic 96–123; BP diastolic 52–89; PULSE 76–113; RESP 16–18; TEMP 97.9–98.4; O2SAT 95–100
[2016-10-14] MEDS: ENOXAPARIN SODIUM 60 MG/0.6 ML SYRINGE SQ SCH ×2 (02:00→14:00)
[2016-10-14] MEDS: INSULIN NovoLIN REGULAR SUPPLEMENTAL SCALE SQ SCH ×5 (06:00→23:52)
[2016-10-14] MEDS: oxyCODONE/ACETAMINOPHEN 5 MG/325 MG TAB PO PRN ×2 (06:12→23:52)
[2016-10-14] MEDS: CILOSTAZOL 100 MG TAB PO SCH (08:12)
[2016-10-14] MEDS: amLODIPine BESYLATE 5 MG TAB PO SCH (08:12)
[2016-10-14] MEDS: ASPIRIN EC 81 MG TABEC PO SCH (08:12)
[2016-10-14] MEDS: ATORVASTATIN 40 MG TAB PO SCH (08:12)
[2016-10-14] MEDS: POLYSACCHARIDE IRON COMPLEX 150 MG CAP PO SCH ×2 (08:12→23:52)
[2016-10-14] MEDS: TAMSULOSIN HCL 0.4 MG CAP PO SCH (08:12)
[2016-10-14] MEDS: DOCUSATE SODIUM 100 MG CAP PO SCH ×2 (08:12→23:51)
[2016-10-14] MEDS: LISINOPRIL 10 MG TAB PO SCH (08:12)
[2016-10-14] MEDS: SERTRALINE HCL 50 MG TAB PO SCH (08:13)
[2016-10-14] MEDS: METOPROLOL TARTRATE 50 MG TAB PO SCH ×2 (08:16→23:52)
--- NOTE | 2016-10-14 11:52 | PD.VS.DC ---
Discharge Summary Admission Date: Oct 03, 2016 at 14:01 Discharge Date: Oct 14, 2016 Admission Diagnosis: (1) PAD Discharge Diagnosis: (1) PAD Status: Chronic Brief History from admission 71 yo male with PAD and a recent R to L fem-fem bypass and a re-do L fem-distal bypass. Since discharge he has had worsening pain of his foot, possible distal bypass is occluded. He was unable to walk or bear weight on the left foot, prior to admission Procedure(s): Redo L fem-PT Significant Findings Laboratory Tests Test 10/12/16 05:16 Red Blood Count 3.04 MIL/MM3 (4.50-5.90) Hemoglobin 8.9 GM/DL (13.0-17.0) Hematocrit 27.5 % (39.0-51.0) Hospital Course: 71 yo male with PAD and a recent R to L fem-fem bypass and a re-do L fem-distal bypass. Since discharge he has had worsening pain of his foot, possible distal bypass is occluded. He was unable to walk or bear weight on the left foot, prior to admission Since admission pt has had a redo L fem -PT, which has improved his overall pain , pt states he is able to walk without pain currently Pt also denies any hematuria, retention or painful urination Allergies Coded Allergies Type Severity Reaction Last Updated Verified No Known Allergies 09/16/16 No 10/12//////// 06:00 18:00 06:00 18:00 06:00 18:00 Intake Total 490 ml 480 ml 482 ml 900 ml Output Total 900 ml 275 ml 550 ml 1200 ml Balance -410 ml 205 ml -68 ml -300 ml Intake Oral 480 ml 480 ml 480 ml 900 ml IV Total 10 ml 2 ml 0 ml Output Urine Total 900 ml 275 ml 550 ml 1200 ml Bladder Scan Volume Amount 27 ml 75 ml 60 ml 19 ml # Voids 1 # Bowel Movements 0 1 0 0 Laboratory Tests Test 10/12/16 05:16 White Blood Count 6.8 TH/MM3 Red Blood Count 3.04 MIL/MM3 Hemoglobin 8.9 GM/DL Hematocrit 27.5 % Mean Corpuscular Volume 90.5 FL Mean Corpuscular Hemoglobin 29.2 PG Mean Corpuscular Hemoglobin 32.3 % Concent Red Cell Distribution Width 14.1 % Platelet Count 330 TH/MM3 Mean Platelet Volume 7.9 FL Activated Partial 27.1 SEC Thromboplast Time Procedure Category Date Status Time Cbc No Diff, Includes LAB 10/12/16 Complete Plts 06:00 Act Partial Throm LAB 10/12/16 Complete Time (Ptt) 06:00 Metoprolol Tartrate MED 10/12/16 In Process (Lopressor) 21:00 ^ Instruction HAVEN 10/12/16 In Process 14:25 Attending Discharge DISCHARGE 10/14/16 Transmitted Order Vital Signs Date Time Temp Pulse Resp B/P Pulse Ox O2 Delivery O2 Flow Rate FiO2 10/14/16 10:22 80 10/14/16 09:25 79 10/14/16 08:16 18 10/14/16 08:00 84 10/14/16 08:00 95 Room Air 10/14/16 08:00 98.0 80 18 118/89 95 10/14/16 06:00 92 10/14/16 05:00 82 10/14/16 04:36 98.1 79 16 110/60 97 10/14/16 04:00 80 10/14/16 03:00 105 10/14/16 02:00 76 10/14/16 01:30 97.9 105 16 108/70 96 10/14/16 01:00 76 10/14/16 00:00 110 10/13/16 23:00 110 10/13/16 22:30 99 Room Air 10/13/16 22:00 92 10/13/16 21:00 112 10/13/16 20:00 97.9 87 16 102/55 99 10/13/16 20:00 100 10/13/16 19:00 72 10/13/16 18:17 102 10/13/16 17:31 105 10/13/16 16:09 98.2 87 18 90/54 96 10/13/16 16:09 89 10/13/16 15:12 86 10/13/16 14:10 98 10/13/16 13:25 96 21 10/13/16 12:33 97.9 86 18 114/60 96 10/13/16 12:33 86 10/13/16 10:10 87 10/13/16 08:15 99 Room Air 10/13/16 08:15 107 10/13/16 08:15 97.8 100 18 135/77 99 10/13/16 06:00 100 10/13/16 05:00 103 10/13/16 04:00 105 10/13/16 04:00 Room Air 10/13/16 03:00 115 10/13/16 02:00 100 10/13/16 01:00 101 10/13/16 00:00 98.6 108 18 105/64 97 10/13/16 00:00 Room Air 10/13/16 00:00 108 10/12/16 23:00 111 10/12/16 22:00 113 10/12/16 21:00 100 10/12/16 20:00 Room Air 10/12/16 20:00 98.3 117 20 111/62 96 10/12/16 20:00 117 10/12/16 18:14 97 21 10/12/16 18:10 113 10/12/16 17:00 102 10/12/16 16:00 99.1 99 16 96/52 97 10/12/16 16:00 110 10/12/16 15:00 97 10/12/16 14:00 74 10/12/16 13:00 88 10/12/16 12:00 98.9 105 16 124/60 95 10/12/16 12:00 108 10/12/16 11:00 116 10/12/16 10:11 97 10/12/16 10:00 116 10/12/16 09:00 106 10/12/16 08:00 95 Room Air 10/12/16 08:00 110 10/12/16 08:00 98.1 110 16 107/59 95 10/12/16 07:00 116 10/12/16 05:59 108 10/12/16 05:00 106 10/12/16 04:24 98.1 117 18 104/54 95 10/12/16 04:24 Room Air 10/12/16 04:00 117 10/12/16 03:00 111 10/12/16 02:00 110 10/12/16 01:00 104 10/12/16 00:00 Room Air 10/12/16 00:00 118 10/12/16 00:00 98.7 118 20 113/69 96 10/11/16 23:00 112 10/11/16 22:00 109 10/11/16 21:00 111 10/11/16 20:00 Room Air 10/11/16 20:00 98 10/11/16 20:00 98.9 98 20 118/73 97 10/11/16 16:07 91 10/11/16 15:00 79 10/11/16 14:00 90 10/11/16 13:00 77 10/11/16 12:02 98.2 81 16 121/69 97 10/11/16 12:00 81 Discharge Condition: Good Discharge Disposition: Discharge to SNF Discharge Instructions: Daily Dressing Changes to left calf incision site Apply Silver alginate to left calf incision center where drainage is present then 4x4 then adhesive bandage PT daily with Weight bearing as tolerated to left foot, right foot full weight bearing Call the office should you have any questions or concerns V[facility] [phone] Any questions or concerns: Call [facility] [phone] Vero Kimble Oct 14, 2016 11:52
[2016-10-14] MEDS: PANTOPRAZOLE SOD 40 MG DELAYED RELEASE TAB PO SCH (23:52)
[2016-10-15] VITALS (12 sets, daily range): BP systolic 102–120; BP diastolic 59–70; PULSE 88–109; RESP 18; TEMP 97–99.1; O2SAT 95–98
[2016-10-15] MEDS: ENOXAPARIN SODIUM 60 MG/0.6 ML SYRINGE SQ SCH ×2 (04:02→14:51)
[2016-10-15] MEDS: oxyCODONE/ACETAMINOPHEN 5 MG/325 MG TAB PO PRN (04:04)
[2016-10-15] MEDS: INSULIN NovoLIN REGULAR SUPPLEMENTAL SCALE SQ SCH ×2 (06:00→11:46)
[2016-10-15] MEDS: DOCUSATE SODIUM 100 MG CAP PO SCH (10:09)
[2016-10-15] MEDS: SERTRALINE HCL 50 MG TAB PO SCH (10:09)
[2016-10-15] MEDS: ASPIRIN EC 81 MG TABEC PO SCH (10:09)
[2016-10-15] MEDS: ATORVASTATIN 40 MG TAB PO SCH (10:09)
[2016-10-15] MEDS: CILOSTAZOL 100 MG TAB PO SCH (10:09)
[2016-10-15] MEDS: amLODIPine BESYLATE 5 MG TAB PO SCH (10:09)
[2016-10-15] MEDS: TAMSULOSIN HCL 0.4 MG CAP PO SCH (10:09)
[2016-10-15] MEDS: POLYSACCHARIDE IRON COMPLEX 150 MG CAP PO SCH (10:09)
[2016-10-15] MEDS: LISINOPRIL 10 MG TAB PO SCH (10:10)
[2016-10-15] MEDS: METOPROLOL TARTRATE 50 MG TAB PO SCH (10:10)
[2016-10-15] MEDS ORDERED: LEVA500T PO (13:43)
[2016-10-15] MEDS ORDERED: LEVOFLOXACIN 500 MG TAB PO ONE (13:45)
--- NOTE | 2016-10-15 18:16 | PD.VS.PN ---
Subjective Subjective/Hospital Course Pt in bed resting in nad Dressing removed with increased purulent discharge Pt awaiting placement to SNF Objective Vitals/I&O Date Time Temp Pulse Resp B/P Pulse Ox O2 Delivery O2 Flow Rate FiO2 10/15/16 16:06 88 10/15/16 15:04 90 10/15/16 14:39 90 10/15/16 13:13 98.0 96 18 118/68 98 10/15/16 13:02 94 10/15/16 12:57 100 10/15/16 11:38 98 10/15/16 10:58 97.0 98 18 120/70 96 10/15/16 10:56 98 10/15/16 08:08 96 10/15/16 07:59 Room Air 2.00 21 10/15/16 04:00 109 10/15/16 04:00 99.0 95 18 102/70 95 10/15/16 00:00 106 10/15/16 00:00 99.1 98 18 118/59 98 10/14/16 20:00 98.4 113 18 123/57 100 10/14/16 20:00 106 10/14/16 19:00 95 Room Air 10/14/16 18:14 102 10/14/16 18:10 96 21 10/15/16 10/15/16 10/15/16 07:00 15:00 23:00 Output Total 250 ml Balance -250 ml Physical Exam GENERAL: A&OX3, GCS15 SKIN: Warm and dry. Increased purulent discharge to center of incision site with no swelling or redness, bilat groin incisions intact no redness drainage or swelling NECK: Supple, trachea midline. No JVD or lymphadenopathy. CARDIOVASCULAR: RRR GASTROINTESTINAL: Abdomen soft, non-tender, nondistended. MUSCULOSKELETAL: No cyanosis, or edema. BLE warm Assessment and Plan Assessment: (1) PAD Status: Chronic Plan Awaits Placement to SNF with PT Rx for Levaquin written for 14 days Discharge Planning D/C on 10/14/16 Pt awaits placement for SNF Vero Kimble Oct 15, 2016 18:16
== END 2016-10-15 17:48 | DRG 253 ==
LOC: HCIS 14:01
PROVIDERS: ADMIT Surgery; ATTEND Surgery
PROC: B41G1ZZ Fluoroscopy of Left Lower Extremity Arteries using Low Osmolar Contrast (ICD-10-PCS; 2016-10-06)
PROC: 041L09Q Bypass Left Femoral Artery to Lower Extremity Artery with Autologous Venous Tissue, Open Approach (ICD-10-PCS; principal; 2016-10-08 09:32)
PROC: 0T9B80Z Drainage of Bladder with Drainage Device, Via Natural or Artificial Opening Endoscopic (ICD-10-PCS; 2016-10-08 09:32)
DX: I70.222 Atherosclerosis of native arteries of extremities with rest pain, left leg (principal); T82.898A Other specified complication of vascular prosthetic devices, implants and grafts, initial encounter; T83.83XA Hemorrhage due to genitourinary prosthetic devices, implants and grafts, initial encounter; I10 Essential (primary) hypertension; E78.5 Hyperlipidemia, unspecified; K21.9 Gastro-esophageal reflux disease without esophagitis; H54.0 Blindness, both eyes; Y73.1 Therapeutic (nonsurgical) and rehabilitative gastroenterology and urology devices associated with adverse incidents; Z23 Encounter for immunization; Z87.891 Personal history of nicotine dependence
CPT/HCPCS: 75635; 75710; 76937; 80048; 82948; 85025; 85027; 85610; 85730; 90732; 94150; C1769; J0131; J1644; J1650; J2250; J2270; J2370; J2405; J2550; J2710; J2720; J3010; J3370; J3480; J7030; J7070; J7120; Q9967